=== PATIENT | female | born 1945 | race Caucasian/White ===

== ENCOUNTER → 2022-12-01 | Outpatient (CLI) | payer MEDICARE, SELFPAY ==
--- NOTE | 2022-12-01 09:00 | PET_ITS ---
EXAMINATION: FDG PET-CT INDICATIONS: A 77-year-old female with a history of pulmonary nodularity. COMPARISON EXAMINATION: None available. INDEX LESION SIZE SUV INTERPRETATION Left upper lung field, left upper lobe 1.0 max Quantitative criteria for viable neoplasm are not fulfilled, repeat FDG PET CT imaging recommended in 6-9 months. Bilateral thoracic perihilum 3.4 max Quantitative criteria for viable neoplasm are fulfilled. Left adrenal gland 2.2 Quantitative criteria for viable neoplasm are not fulfilled. TECHNIQUE: Following the intravenous administration of 13.53 mCi of F-18 deoxyglucose via the left antecubital fossa, multiplanar image acquisitions of the head, neck, chest, abdomen and pelvis to level of mid-thigh, lower extremities obtained at one hour post radiopharmaceutical administration contemporaneously interpreted with the current CT of the head, neck, chest, abdomen and pelvis to level of mid-thigh, lower extremities dated 12/01/22 via coregistration reveal: SERUM GLUCOSE LEVEL: 97 mg/dl. HEIGHT: 63 inches. WEIGHT: 136 lbs. FINDINGS: Head/Neck: There is no evidence of abnormal increased glucose metabolism in the pharyngeal mucosal space, parapharyngeal space, bilateral-lateral and anterior neck, hypopharynx and distribution of the laryngeal structures. The visualized portion of the cerebral cortical-subcortical structures demonstrate symmetric and preserved glucose metabolism. CHEST: Subtle increased radiopharmaceutical concentration defined in the left upper anterior lung field, left upper lobe. The calculated maximum standard uptake value is 1.0. Quantitative criteria for viable neoplasm are not fulfilled. Facilitated FDG concentration is noted in the bilateral thoracic perihilum. The calculated maximum standard uptake value is 3.4. Prominent radiopharmaceutical concentration is identified in the left ventricular myocardium commensurate with the [place]. Pertinent chest CT findings are as follows. There is atherosclerotic calcification defined in the thoracic aorta without evidence of dilatation-aneurysm formation. Coronary arterial calcification is observed. Apical lung field linear parenchymal densities demonstrate no evidence of quantitatively significant increased FDG uptake. Abdomen/Pelvis: Mild increased radiopharmaceutical concentration is identified in the left upper abdomen associated with the left adrenal gland. The calculated maximum standard uptake value is 2.2. Normal physiologic distribution of the radiopharmaceutical is apparent in the hepatic and splenic parenchyma, both renal units, bladder and visualized intestinal tract. Diffuse radiopharmaceutical concentration is noted in all four quadrants of the abdomen and pelvis. Abdomen and pelvis CT findings are as follows. Calcification is defined in the bilateral adnexal region without evidence of increased tracer uptake. Right and left inguinal soft tissue densities are ametabolic. The gallbladder is surgically absent. There is atherosclerotic calcification defined in the abdominal aorta without evidence of dilatation-aneurysm formation. Pelvic arterial calcification is observed. Calcified phlebolith formation is encountered in the right lower hemipelvis. Skeletal: Orthopedic hardware placement is noted in the mid-lower cervical spine commensurate with spinal fusion operative intervention. Degenerative changes are noted in the cervical, thoracic and lumbar spine. PET/PET/CT Tumor Base -Thigh Init IMPRESSION: 1. NEGATIVE EXAMINATION. There is no definitive quantitative scintigraphic evidence of viable neoplasm. 2. Enhanced tracer uptake barely perceptible in the left upper lung field, left upper lobe does not fulfill quantitative criteria for malignant transformation. (Mondragon et al, Annals of Internal Medicine, 138:724, 2003) 3. Metabolic and/or anatomic stability may be ensured in the left hemithorax pulmonary parenchymal abnormality with repeat FDG PET study and/or CT of the thorax in six-nine months if clinically indicated. (Xiu, Journal of Nuclear Medicine 45:88, P2004 Andrea, Seminars in Thoracic and Cardiovascular Surgery 14:292, 2002) 4. The increase in radiopharmaceutical concentration manifest in the bilateral thoracic perihilum does not fulfill quantitative criteria for malignant transformation. 5. The left adrenal gland subtle hypermetabolic focus does not fulfill quantitative criteria for malignant involvement. Electronic Signature Rodriguez Peters D.O. Accurate Quantification of SUVs for this report are calculated using the exclusive [employer], ([place] Patent No. [id number] [id number] [phone] [phone] [place] patent [id number] [phone] ). Standardization and correction of the FDG SUV metric exclusively available with [employer] intellectual property, allow for vendor non-specific objective quantitative sequential FDG PET-CT comparison and otherwise unobtainable optimization of the sensitivity and specificity of the examination. [email or web address] Electronically Signed: Rodriguez Peters DO at 7:57 EDT ,
== END | disposition home or self-care (01) ==
PROVIDERS: PCP Family Medicine; Referring Provider Internal Medicine Pulmonary Disease; Visit Provider Internal Medicine Pulmonary Disease
DX: R91.1 Solitary pulmonary nodule (principal)
CPT/HCPCS: 78815; A9552

== ENCOUNTER → 2023-05-13 | Outpatient (CLI) | payer MEDICARE, SELFPAY ==
--- NOTE | 2023-05-13 12:52 | CT_ITS ---
INDICATION: Known pulmonary nodules EXAMINATION: CT CHEST WITHOUT CONTRAST - CT Chest W/O Contrast Injection TECHNIQUE: Helically acquired images were obtained of the chest. A radiation dose optimization technique was used for this scan. IV Contrast dosage and agent: None. COMPARISON: Pet/CT from 12/02/2019 FINDINGS: LUNGS, PLEURA AND LARGE AIRWAYS: Lung windows show nonspecific pleural thickening in the apices with underlying emphysema and nonspecific pleural thickening in both hemithoraces as well. There is dependent atelectasis without an organized infiltrate, effusion, or suspicious noncalcified mass or nodule. THYROID: No thyroid lesions. HEART AND PERICARDIUM: Heart size is normal. No pericardial effusion. CORONARY ARTERIES: Coronary artery calcification is seen. VESSELS: Thoracic aorta is not dilated. MEDIASTINUM AND KRYSTEN: No suspicious enlarged axillary, mediastinal or hilar adenopathy. There is a small hiatal hernia with evidence of GE reflux. UPPER ABDOMEN: Limited cuts through the upper abdomen show previous cholecystectomy. BONES: No suspicious lytic or blastic abnormality. Degenerative changes noted CT/Chest without Contrast IMPRESSION: Underlying emphysema with nonspecific pleural thickening in both hemithoraces particularly the apices, no organized infiltrate, effusion, or suspicious noncalcified mass or nodule No suspicious adenopathy Degenerative bony changes Electronically Signed: Soren Hare MD at 13:07 EDT ,
--- OUTSIDE RECORDS SUMMARY | 2023-05-13 20:50 | XMS RPT_ITS | CCD ---
Author Name Unknown Address [address] [place] [address] Organization [facility] Care Team Providers Care Teaching Young Name Role Phone Jesus FRIEDMAN, Rodriguez Primary Care Provider Jesus FRIEDMAN, Rodriguez Primary Care Provider Moy De Dios MD Primary Care Provider MOY DE DIOS Attending Unavailable MOY DE DIOS Primary Care Unavailable MOY DE DIOS Attending Unavailable MOY DE DIOS Primary Care Unavailable BRYON VEE Attending Unavailable RODRIGUEZ FRANCO Primary Care Unavailable RODRIGUEZ FRANCO Primary Care Unavailable RODRIGUEZ FRANCO Primary Care Unavailable PHIL BURGESS Attending Unavailable Allergies Allergy Classification Reported Allergen(s) Allergy Type Date of Onset Reaction(s) Facility (4 sources) Lidocaine Drug Allergy 12-08-2022 [facility] Medications Current Medications Medication Drug Class(es) Dates Sig (Normalized) Sig (Original) 60 actuat fluticasone propionate 0.232 mg/actuat / salmeterol xinafoate 0.014 mg/actuat dry powder inhaler (1 source) Corticosteroid, beta2-Adrenergic Agonist Start: 12-22-2022 take 1 puff(s) by inhalation twice daily fluticasone-salme terol (AirDuo RespiClick) 232-14 MCG/ACT inhaler Inhale 1 puff 2 times daily. 0 12/22/2022 Active Meclizine (2 sources) Antiemetic MECLIZINE HCL PO Take by mouth. 0 Active Misc Natural Products (PUMPKIN SEED OIL PO) (2 sources) Misc Natural Products (PUMPKIN SEED OIL PO) Take by mouth. 0 Active Multiple Vitamin (MULTIVITAMIN ADULT PO) (2 sources) Multiple Vitamin (MULTIVITAMIN ADULT PO) Take by mouth. 0 Active Completed/Discontinued Medications Medication Drug Class(es) Dates Sig (Normalized) Sig (Original) cholecalciferol 0.125 mg oral capsule (2 sources) Vitamin D End: 01-05-2023 take 1 capsule by mouth once daily cholecalciferol (Vitamin D-3) 125 MCG (5000 UT) capsule Take 1 capsule by mouth daily. 0 01/05/2023 Discontinued (Therapy completed) Fluticasone-Umeclidin -Vilant (TRELEGY ELLIPTA IN) (2 sources) End: 01-05-2023 Fluticasone-Umeclidi n-Vilant (TRELEGY ELLIPTA IN) Inhale. 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 Cardiac dysrhythmias (5 sources) Palpitations; Translations: [Palpitations] Onset: 11-13-2022 11-20-2022 Episodic Conditions associated with dizziness or vertigo (7 sources) Dizziness; Translations: [Dizziness and giddiness] Onset: 12-09-2022 12-09-2022 Episodic Other circulatory disease (6 sources) Elevated blood-pressure reading without diagnosis of hypertension; Translations: [Elevated blood-pressure reading, without diagnosis of hypertension] Onset: 12-09-2022 12-09-2022 Episodic Other circulatory disease (2 sources) Elevated blood-pressure reading, without diagnosis of hypertension; Translations: [Elevated blood-pressure reading, without diagnosis of hypertension] Onset: 12-09-2022 Episodic Other lower respiratory disease (2 sources) Dyspnea; Translations: [Shortness of breath] 11-20-2022 Episodic Other lower respiratory disease (2 sources) Nodule of lung; Translations: [Solitary pulmonary nodule] 11-20-2022 Episodic Other lower respiratory disease (6 sources) Solitary nodule of lung; Translations: [Solitary pulmonary nodule] Onset: 12-01-2022 12-09-2022 Episodic Other lower respiratory disease (1 source) Solitary pulmonary nodule; Translations: [Solitary pulmonary nodule] Onset: 12-09-2022 Episodic Other lower respiratory disease (2 sources) Shortness of breath; Translations: [Shortness of breath] Onset: 11-20-2022 Episodic Other screening for suspected conditions (not mental disorders or infectious disease) (6 sources) Patient encounter status; Translations: [Encounter for screening for diabetes mellitus] Onset: 01-05-2023 01-05-2023 Episodic Viral infection (1 source) Disease caused by 2019-nCoV; Translations: [COVID-19] Episodic Results Test Name Value Interpretation Reference Range Facil ity Vital Signs Date Time Vital Sign Value Performing Clinician Merlyn lópez 01-05-2023 11:37-0500 Diastolic blood pressure 75 mm[Hg] Moy De Dios MD Work Phone: [facility] 01-05-2023 11:37-0500 Heart rate 75 /min Moy De Dios MD Work Phone: [facility] 01-05-2023 11:37-0500 Systolic blood pressure 137 mm[Hg] Moy Espinoza Work Phone: [facility] 01-05-2023 10:58-0500 Body height 160 cm Moy De Dios MD Work Phone: [facility] [employer] 01-05-2023 10:58-0500 Body mass index (BMI) [Ratio] 25.65 kg/m2 Moy De Dios MD Work Phone: [facility] 01-05-2023 10:58-0500 Body weight 65.68 kg Moy De Dios MD Work Phone: [facility] 01-05-2023 10:58-0500 SaO2% (BldA) [Mass fraction] 95 % Moy De Dios MD Work Phone: [facility] 12-09-2022 14:40-0400 Diastolic blood pressure 71 mm[Hg] Moy De Dios MD Work Phone: [facility] 12-09-2022 14:40-0400 Heart rate 82 /min Moy De Dios MD Work Phone: [facility] 12-09-2022 14:40-0400 Systolic blood pressure 126 mm[Hg] Moy Espinoza Work Phone: [facility] 12-09-2022 14:11-0400 Body height 160 cm Moy De Dios MD Work Phone: [facility] [employer] 12-09-2022 14:11-0400 Body mass index (BMI) [Ratio] 25.72 kg/m2 Moy De Dios MD Work Phone: [facility] [employer] 12-09-2022 14:11-0400 Body weight 65.86 kg Moy De Dios MD Work Phone: [facility] [employer] 12-09-2022 14:11-0400 SaO2% (BldA) [Mass fraction] 96 % Moy De Dios MD Work Phone: [facility] [employer] 11-20-2022 14:33-0400 Diastolic blood pressure 60 mm[Hg] Phil Burgess MD Work Phone: [facility] [employer] 11-20-2022 14:33-0400 Heart rate 60 /min Phil Burgess MD Work Phone: [facility] [employer] 11-20-2022 14:33-0400 Respiratory rate 18 /min Phil Burgess MD Work Phone: [facility] [employer] 11-20-2022 14:33-0400 SaO2% (BldA) [Mass fraction] 98 % Phil Burgess MD Work Phone: [facility] [employer] 11-20-2022 14:33-0400 Systolic blood pressure 143 mm[Hg] Phil macedo MD Work Phone: [facility] [employer] 11-20-2022 09:04-0400 Body temperature 97.9 [degF] Phil Burgess MD Work Phone: [facility] [employer] Encounters Encounter Date Encounter Type Care Provider Facility Start: 01-05-2023 End: 01-05-2023 ambulatory [facility] Start: 01-05-2023 End: 01-05-2023 Encounter for general adult medical examination without abnormal findings [facility] Start: 01-05-2023 End: 01-05-2023 Patient encounter procedure Moy De Dios MD Work Phone: [facility] Procedures Date Procedure Procedure Detail Performing Clinician Start: 01-05-2023 Adult depression scr eening assessment Moy De Dios MD Work Phone: Start: 11-20-2022 Ct angiography chest w/contrast/noncontrast Es Camejo PA-C Work Phone: Start: 11-20-2022 Radiologic exam ches t single view Es Camejo PA-C Work Phone: Start: 11-20-2022 Basic metabolic pane l calcium total Eslynne Camejo PA-C Work Phone: Start: 11-20-2022 Ecg routine ecg w/le ast 12 lds trcg only w/o i&r Phil Burgess MD Work Phone: Start: 03-19-2022 Comprehensive metabo lic panel Bryon Vee MD Work Phone: Start: 03-19-2022 Lipid panel Bryon tijerina MD Work Phone: Start: 11-25-2020 Radiologic exam ches t 2 views Rodriguez Franco MD Work Phone: Plan of Treatment Date Care Activity Detail Author Start: 02-05-2024 Medicare Annual Wellness (AWV) Medicare Annual Wellness (AWV) [facility] Start: 01-11-2024 End: 01-11-2024 Patient encounter procedure 01/11/2024 9:30 AM EST Office Visit [facility] [address] [place] [address] Moy De Dios MD [address] [facility] [address] [place], [place] [id number] [facility] Start: 01-06-2024 Depression Screening Depression Scre ening [facility] Start: 12-09-2023 COVID-19 Vaccine (#1) COVID-19 Vacci ne (#1) [facility] Payers Date Payer Category Payer Medicare [id number] 2011 Medicare MEDICARE MEDICAR E PART A AND B [id number] 2011-Present [address] [place] [address] Medicare [id number] Social History Date Type Detail Facility Tobacco smoking stat [facility] Unknown if ever smoked [facility] Work Phone: Start: 1945 Sex Assigned At Not on file [facility] Work Phone: Tobacco smoking stat [facility] Tobacco smoking consumption unknown [facility] Start: 03-09-2022 End: 11-20-2022 Exposure to SARS-CoV-2 (event) Not sure [facility] Start: 12-09-2022 End: 01-05-2023 Gender identity Not on file [facility] Start: 12-09-2022 End: 01-05-2023 History of Social function [facility] Start: 12-08-2022 Tobacco smoking stat [facility] Ex-smoker [facility] History of tobacco use Current smoker [facility] History of tobacco use Cigarette Smoker [facility] Start: 12-08-2022 Tobacco use and exposure Smoke less tobacco non-user [facility] Start: 12-09-2022 End: 01-05-2023 Alcohol intake Ex-drinker (finding) [facility] Frequency of Alcohol Consumption Not on file [facility] (I/We) worried whekrystian er (my/our) food would run out before (I/we) got money to buy more. Never true [facility] [employer] In the past 12 month s, was there a time when you were not able to pay the mortgage or rent on time? No [facility] Clinical Notes 11-20-2022 to 01-05-2023 Assessment & Plan Note - Moy De Dios MD - 01/05/2023 11:58 AM ESTAssessment & Plan Note - Moy De Dios MD - 01/05/2023 11:58 AM Shaan Stewart MA - 01/05/2023 11:00 AM EST Note Date & Type Note Facility 01-05-2023 Evaluation + Plan note Associated Problem(s): Elevated BP without diagnosis of hypertension Blood pressure was initially elevated, recheck was normal. [facility] 01-05-2023 Miscellaneous Notes Associated Problem(s): Elevated BP without diagnosis of hypertension Blood pressure was initially elevated, recheck was normal. documented in this encounter [facility] 01-05-2023 History of Presen t illness Narrative Patient verified by last name and date of . Images from the original note were not included. [email or web address] [address] [facility] [id number] Visit type: Established Patient Reason for Visit: Medicare Annual Wellness Visit Subsequent and Blood Work Assessment and Plan Problem List Items Addressed This Visit Circulatory Elevated BP without diagnosis of hypertension Blood pressure was initially elevated, recheck was normal. Other Visit Diagnoses Medicare annual wellness visit, initial - Primary Screening for diabetes mellitus Relevant Orders Comprehensive metabolic panel Screening for ischemic heart disease Relevant Orders Lipid panel Follow up in about 6 months (around 07/06/2023). Subjective HPI Danii comes in today for her initial annual Medicare well visit, she has no complaints she said her dizziness has significantly improved and currently she is using almost no meclizine. She said her daughter told her that her daughter and her granddaughter were having similar symptoms of shortness of breath and dizziness and her ferritin was low however reviewing Danii's chart she has had 2 CBCs that are perfectly normal no anemia which would be unusual if ferritin was low. Blood pressure is again elevated today we will recheck that prior to discharge. She has no other complaints, see ROS. I have reviewed and reconciled the medication list with the patient today. Current Outpatient Medications Medication Sig Dispense Refill fluticasone-salmeterol (AirDuo RespiClick) 232-14 MCG/ACT inhaler Inhale 1 puff 2 times daily. MECLIZINE HCL PO Take by mouth. Misc Natural Products (PUMPKIN SEED OIL PO) Take by mouth. Multiple Vitamin (MULTIVITAMIN ADULT PO) Take by mouth. No current facility-administered medications for this visit. Medications Discontinued During This Encounter Medication Reason cholecalciferol (Vitamin D-3) 125 MCG (5000 UT) capsule Therapy completed Ehdygjsujih-Qcxzutpin-Ltfuqu (TRELEGY ELLIPTA IN) Therapy completed List of current healthcare providers: Patient Care Team: Moy De Dios MD as PCP - General (Family Medicine) The following health maintenance schedule was reviewed with the patient and provided in printed form in the after visit summary: Health Maintenance Topic Date Due Medicare Annual Wellness (AWV) Never done Depression Screening Never done Influenza Vaccine (1) 08/29/2023 (Originally 10/30/2022) DTaP/Tdap/Td Vaccines (1 - Tdap) 12/09/2023 (Originally 1965) Pneumococcal Vaccine: 65+ Years (1 - PCV) 12/09/2023 (Originally 2011) Zoster Vaccines (1 of 2) 12/09/2023 (Originally 1996) Hepatitis C Screening 12/09/2023 (Originally 1964) Bone Density Scan 12/09/2023 (Originally 1945) COVID-19 Vaccine (1) 12/09/2023 (Originally 1945) HIB Vaccines Aged Out Hepatitis B Vaccines Aged Out IPV Vaccines Aged Out Hepatitis A Vaccines Aged Out Meningococcal Vaccine Aged Out Rotavirus Vaccines Aged Out HPV Vaccines Aged Out Orders Placed This Encounter Procedures Lipid panel Standing Status: Future Number of Occurrences: 1 Standing Expiration Date: 01/06/2024 Comprehensive metabolic panel Standing Status: Future Number of Occurrences: 1 Standing Expiration Date: 01/06/2024 Health Risk Assessment: General In general, how would you say your health is?: Very good In the past 7 days, have you experienced any of the following: New or Increased Pain, New or Increased Fatigue, Loneliness, Social Isolation, Stress or Anger?: No Do you get the social and emotional suppport you need?: Yes Interventions: Interventions: Hearing / Vision Do you or your family notice any trouble with your hearing that hasn't been managed with hearing aids?: No Do you have difficulty driving, watching TV, or doing any of your daily activities because of your eyesight?: No Have you had an eye exam within the past year?: Yes No results found. Interventions: Safety Do you have a working smoke detector?: Yes Do you have any tripping hazards - loose or unsecured carpets or rugs?: No Do you have any tripping hazards - clutter in doorways, halls, or stairs?: No Do you have either shower bars, grab bars, non-slip mats or non-slip surfaces in your shower or bathtub? : Yes Do all your stairways have a railing or banister? : Yes Do you fasten your seatbelt when you are in a car?: Yes Interventions: ADL In the past 7 days, did you need help from others to perform any of the following everyday activities: Eating, dressing, grooming,bathing, toileting, or walking / balance? : No In the past 7 days, did you need help from others to take care of any of the following: laundry, housekeeping, banking / finances,shopping, telephone use, food preparation, transportation, or taking medications? : No Interventions: Living Will Do you have a living will?: Yes Interventions: Cognitive: Cognitive Screening: Mini-Cog Clock Drawing Test (CDT): 2 Words Recalled: 3 Total Score: 5 Total Score Interpretation: Normal Mini-Cog Interventions: Fall Risk: Interventions: No falls Depression Screening: Over the past 2 weeks, how often have you been bothered by any of the following problems? Little interest or pleasure in doing things: Several days Feeling down, depressed, or hopeless: Not at all Patient Health Questionnaire-2 Score: 1 If you checked off any problems on this questionnaire so far, How difficult have these problems made it for you to do your work, take care of things at home, or get along with other people?: Not difficult at all Interventions: Tobacco Use: Social History Tobacco Use Smoking Status Former Packs/day: 2.00 Years: 14.00 Additional pack years: 0.00 Total pack years: 28.00 Types: Cigarettes Smokeless Tobacco Never Interventions: Alcohol Use: Audit Alcohol Screening Q2: How many drinks containing alcohol do you have on a typical day when you are drinking?: Patient does not drink Interventions: Drug Use: Drug Abuse Screening Test (DAST-10) Have you used drugs other than those required for medical reasons?: No Interventions: Review of Systems Constitutional: Negative for chills and fever. Respiratory: Negative for shortness of breath. Cardiovascular: Negative for chest pain and palpitations. Gastrointestinal: Negative for abdominal pain, blood in stool, constipation and diarrhea. Genitourinary: Negative for dyspareunia, dysuria, frequency, hematuria and urgency. Neurological: Negative for weakness and numbness. Psychiatric/Behavioral: Negative for dysphoric mood. The patient is not nervous/anxious. There is no immunization history on file for this patient. Allergies Allergen Reactions Lidocaine Other reaction(s): Unknown Outpatient Medications Prior to Visit Medication Sig Dispense Refill fluticasone-salmeterol (AirDuo RespiClick) 232-14 MCG/ACT inhaler Inhale 1 puff 2 times daily. MECLIZINE HCL PO Take by mouth. Misc Natural Products (PUMPKIN SEED OIL PO) Take by mouth. Multiple Vitamin (MULTIVITAMIN ADULT PO) Take by mouth. cholecalciferol (Vitamin D-3) 125 MCG (5000 UT) capsule Take 1 capsule by mouth daily. Wtldqjrlimt-Pbrkyawcj-Fkamrv (TRELEGY ELLIPTA IN) Inhale. No facility-administered medications prior to visit. History reviewed. No pertinent past medical history. Social History Socioeconomic History Marital status: Tobacco Use Smoking status: Former Packs/day: 2.00 Years: 14.00 Additional pack years: 0.00 Total pack years: 28.00 Types: Cigarettes Smokeless tobacco: Never Vaping Use Vaping Use: Never used Substance and Sexual Activity Alcohol use: Not Currently Drug use: Never Sexual activity: Not Currently Social Determinants of Health Financial Resource Strain: Low Risk (01/05/2023) Overall Financial Resource Strain (CARDIA) Difficulty of Paying Living Expenses: Not hard at all Food Insecurity: No Food Insecurity (01/05/2023) Hunger Vital Sign Worried About Running Out of Food in the Last Year: Never true Ran Out of Food in the Last Year: Never true Transportation Needs: No Transportation Needs (01/05/2023) PRAPARE - Transportation Lack of Transportation (Medical): No Lack of Transportation (Non-Medical): No Physical Activity: Sufficiently Active (01/05/2023) Exercise Vital Sign Days of Exercise per Week: 5 days Minutes of Exercise per Session: 40 min Housing Stability: Low Risk (01/05/2023) Housing Stability Vital Sign Unable to Pay for Housing in the Last Year: No Number of Places Lived in the Last Year: 1 Unstable Housing in the Last Year: No Past Surgical History: Procedure Laterality Date CERVICAL FUSION 2002 CHOLECYSTECTOMY 1979 Past Surgical History: Procedure Laterality Date CERVICAL FUSION 2002 CHOLECYSTECTOMY 1979 Family History Problem Relation Name Age of Onset Emphysema Mother Objective BP 137/75 Pulse 75 Ht 5' 3 (1.6 m) Wt 144 lb 12.8 oz (65.7 kg) SpO2 95% BMI 25.65 kg/m Physical Exam Vitals and nursing note reviewed. Constitutional: General: She is not in acute distress. Appearance: Normal appearance. HENT: Head: Normocephalic. Right Ear: Tympanic membrane, ear canal and external ear normal. Left Ear: Tympanic membrane, ear canal and external ear normal. Mouth/Throat: Mouth: Mucous membranes are moist. Pharynx: Oropharynx is clear. Eyes: Extraocular Movements: Extraocular movements intact. Pupils: Pupils are equal, round, and reactive to light. Neck: Thyroid: No thyromegaly. Vascular: No carotid bruit. Cardiovascular: Rate and Rhythm: Normal rate and regular rhythm. Heart sounds: Normal heart sounds. No murmur heard. Pulmonary: Effort: Pulmonary effort is normal. Breath sounds: Normal breath sounds. Abdominal: General: Bowel sounds are normal. Palpations: Abdomen is soft. Musculoskeletal: General: Normal range of motion. Cervical back: Normal range of motion. Lymphadenopathy: Cervical: No cervical adenopathy. Skin: General: Skin is warm and dry. Neurological: General: No focal deficit present. Mental Status: She is alert and oriented to person, place, and time. Psychiatric: Mood and Affect: Mood normal. Data Reviewed Labs: Imaging/Testing: Moy De Dios MD 01/05/2023 11:58 AM documented in this encounter [facility] 12-10-2022 Telephone encounter Note Pt had PET scan ordered by Dr. Yoon completed in [place] on 12/01/22 showing low suspicion for malignancy with recommendation per radiology report to complete fu imaging in 6-9 months time. Navigator will plan to follow and look for additional imaging in May 2023. [facility] 12-10-2022 Miscellaneous Notes Pt had PET scan ordered by Dr. Yoon completed in [place] on 12/01/22 showing low suspicion for malignancy with recommendation per radiology report to complete fu imaging in 6-9 months time. Navigator will plan to follow and look for additional imaging in May 2023. Pt appeared on ED Nuance search for lung nodules after CTA chest 11/20/22 revealed mult pulmonary nodules up to 10 x 7 mm. Pt was referred to [facility] but deferred as she is established in [place]. Navigator contacted patient by phone to determine provider, she sees Dr. Justino Honeycutt, contacted their office and spoke with Erica, she confirms patient has appt 11/26/22. Will fax imaging reports/ED notes to [phone]. No further questions at this time. documented in this encounter [facility] 12-09-2022 Note Addended by: MOY DE DIOS on: 12/10/2022 04:07 PM Modules accepted: Level of Service [facility] 12-09-2022 Evaluation + Plan note Associated Problem(s): Dizziness Etiology is unknown, she is seeing cardiology who has her scheduled for a monitor and storage bin tender, she also has had a stress test and echocardiogram. [facility] 12-09-2022 Miscellaneous Notes Associated Problem(s): Dizziness Etiology is unknown, she is seeing cardiology who has her scheduled for a monitor and storage bin tender, she also has had a stress test and echocardiogram. Associated Problem(s): Elevated BP without diagnosis of hypertension Blood pressure was initially elevated, recheck was normal. Associated Problem(s): Solitary pulmonary nodule Stable, follow-up with pulmonology as scheduled Addended by: MOY DE DIOS on: 12/10/2022 04:07 PM Modules accepted: Level of Service documented in this encounter [facility] 12-09-2022 Evaluation + Plan note Associated Problem(s): Elevated BP without diagnosis of hypertension Blood pressure was initially elevated, recheck was normal. [facility] 12-09-2022 Evaluation + Plan note Associated Problem(s): Solitary pulmonary nodule Stable, follow-up with pulmonology as scheduled [facility] 12-09-2022 History of Presen t illness Narrative Patient verified by last name and date of . Images from the original note were not included. 12/09/2022 Danii Stokes (: 1945) is a 77 y.o. female , Established patient, here for evaluation of the following chief complaint(s): New Patient, Lung Nodule (Multiple nodules showed on chest ct), and Health Maintenance (Pt refused all vaccines, dexa scan, screening hep c ) ASSESSMENT/PLAN: 1. Solitary pulmonary nodule Assessment & Plan: Stable, follow-up with pulmonology as scheduled 2. Dizziness Assessment & Plan: Etiology is unknown, she is seeing cardiology who has her scheduled for a monitor and storage bin tender, she also has had a stress test and echocardiogram. 3. Elevated BP without diagnosis of hypertension Assessment & Plan: Blood pressure was initially elevated, recheck was normal. Follow up AWV. SUBJECTIVE/OBJECTIVE: ANTONINA Belcher comes in today to establish as a new patient, she said her previous doctor left town. She does see cardiology and pulmonology were both working her up for dizziness a pulmonary nodule and COPD. She has no other complaints at this time, she has not had lab work for a while so we will get her scheduled to come in for an annual Medicare well visit and do fasting lab work at that time. Blood pressure is initially elevated, we will recheck that prior to discharge. Review of Systems Constitutional: Negative for chills and fever. Respiratory: Positive for shortness of breath. Cardiovascular: Negative for chest pain and palpitations. Gastrointestinal: Negative for abdominal pain, blood in stool, constipation and diarrhea. Genitourinary: Negative for dyspareunia, dysuria, frequency, hematuria and urgency. Neurological: Negative for weakness and numbness. Psychiatric/Behavioral: Negative for dysphoric mood. The patient is not nervous/anxious. Vitals: 12/09/22 1411 12/09/22 1440 BP: (!) 164/79 126/71 Pulse: 80 82 SpO2: 96% Weight: 145 lb 3.2 oz (65.9 kg) Height: 5' 3 (1.6 m) Physical Exam Vitals and nursing note reviewed. Constitutional: General: She is not in acute distress. Appearance: Normal appearance. HENT: Head: Normocephalic. Right Ear: Tympanic membrane, ear canal and external ear normal. Left Ear: Tympanic membrane, ear canal and external ear normal. Mouth/Throat: Mouth: Mucous membranes are moist. Pharynx: Oropharynx is clear. Eyes: Extraocular Movements: Extraocular movements intact. Pupils: Pupils are equal, round, and reactive to light. Neck: Vascular: No carotid bruit. Cardiovascular: Rate and Rhythm: Normal rate and regular rhythm. Heart sounds: Normal heart sounds. No murmur heard. Pulmonary: Effort: Pulmonary effort is normal. Breath sounds: Normal breath sounds. Abdominal: General: Bowel sounds are normal. Palpations: Abdomen is soft. Musculoskeletal: General: Normal range of motion. Cervical back: Normal range of motion. Lymphadenopathy: Cervical: No cervical adenopathy. Skin: General: Skin is warm and dry. Neurological: General: No focal deficit present. Mental Status: She is alert and oriented to person, place, and time. Psychiatric: Mood and Affect: Mood normal. An electronic signature was used to authenticate this note. Moy De Dios MD 12/09/2022 4:26 PM documented in this encounter [facility] 12-09-2022 Note Addended by: MOY DE DIOS on: 12/10/2022 04:07 PM Modules accepted: Level of Service [facility] 11-25-2022 Telephone encounter Note Pt appeared on ED Nuance search for lung nodules after CTA chest 11/20/22 revealed mult pulmonary nodules up to 10 x 7 mm. Pt was referred to [facility] but deferred as she is established in [place]. Navigator contacted patient by phone to determine provider, she sees Dr. Justino Honeycutt, contacted their office and spoke with Erica, she confirms patient has appt 11/26/22. Will fax imaging reports/ED notes to [phone]. No further questions at this time. [facility] 11-20-2022 Hospital Dischajit Camejo PA-C - 11/20/2022 3:25 PM EDT Please follow-up with your machine spreader in regards to your palpitations, and shortness of breath. Please keep the scheduled ECHO on December 01, unless otherwise directed by your machine spreader. You have also been provided with a referral to pulmonology to follow-up on your pulmonary nodule and scarring which were incidentally found on imaging today. Please return to the ED if you have any new or worsening symptoms to include worsening dizziness, lightheadedness, shortness of breath, chest pain, palpitations, cough, hemoptysis, leg swelling, weakness, numbness, tingling, presyncope, syncope, fevers, chills or if you have any new symptoms or concerns. The following attachments cannot be sent through Care Everywhere.Palpitations Discharge Instructions (Macedonian)Shortness of Breath (Dyspnea) Discharge Instructions (Macedonian)documented in this encounter [facility] 11-20-2022 Emergency department Note Ortho BP's: Layin/71 (99) HR: 88 Sittin/64 (96) HR: 70 Standin/82 (110) HR: 88 Mally Kennedy RN 11/20/22 1035 [facility] 11-20-2022 Emergency department Note Ortho BP's: Layin/71 (99) HR: 88 Sittin/64 (96) HR: 70 Standin/82 (110) HR: 88 Mally Kennedy RN 11/20/22 1035 EMERGENCY DEPARTMENT ENCOUNTER Pt Name: Danii Stokes Birthdate 1945 Date of evaluation: 11/20/2022 ED Provider: Es Camejo PA-C EDcare was supervised by Dr. Burgess who independently examined and evaluated the patient. Please see their attestation note for further details. CHIEF COMPLAINT Chief Complaint Patient presents with Dizziness HISTORY OF PRESENT ILLNESS (Location/Symptom, Timing/Onset, Context/Setting, Quality, Duration, Modifying Factors, Severity) Note limiting factors. I wore appropriate PPE for the entirety of this encounter. HPI Danii Stokes is a 77 y.o. female who presents to the emergency department with chief complaint of dizziness, shortness of breath, palpitations which occurs with activity, and at random times throughout the day for the past 2 to 3 weeks. Patient reports that she has been very healthy, and has no chronic medical conditions, takes no medications on a daily basis but about 3 weeks ago she began to have intermittent dizziness, palpitations and shortness of breath that seem to be random. On further questioning patient does report that it is exacerbated by activity such as walking up the stairs, exercise, activity. She denies any exacerbation of her symptoms with movements from sitting to standing, or laying to standing but states that it is significantly worse with walking up the stairs. She quantifies her dizziness as a feeling of presyncope, and denies a room spinning sensation. She has not had any nausea, vomiting, ringing in the ears. She reports that she was evaluated by her machine spreader a couple of days ago, and he performed an EKG which was normal and she is scheduled for an ECHO on December 01. She reports that the symptoms happen approximately 3-4 times a day and she came in today because she was concerned as they have not been resolving. She denies any fevers, chills, nausea, vomiting, abdominal pain, diarrhea, constipation, dysuria, pyuria, flank pain. She endorses a single episode of leg swelling which lasted for 30 minutes several days ago and resolved without further intervention, and denies any additional leg swelling, leg pain and she has no additional symptoms or complaints at this time. Nursing Notes were reviewed. Limitations to history: None Outside historians: None REVIEW OF SYSTEMS Review of Systems 9 systems reviewed, pertinent positives and negatives as in HPI PAST MEDICAL HISTORY No past medical history on file. SURGICAL HISTORY No past surgical history on file. CURRENT MEDICATIONS Previous Medications No medications on file ALLERGIES Patient has no known allergies. FAMILY HISTORY No family history on file. SOCIAL HISTORY Social History Socioeconomic History Marital status: SCREENINGS HEART Score History: Moderately suspicious ECG: Normal Age: 65+ Risk Factors: No known risk factors Troponin: Less than or equal to normal limit HEART Score: 3 NIH Stroke Scale 1A. Level of Consciousness: Alert, Keenly Responsive 1B. Ask Month and Age: Both Questions Right 1C. Blink Eyes & Squeeze Hands: Performs Both Tasks 2. Best Gaze: Normal 3. Visual: No Visual Loss 4. Facial Palsy: Normal Symmetrical Movements 5A. Motor - Left Arm: No Drift 5B. Motor - Right Arm: No Drift 6A. Motor - Left Leg: No Drift 6B. Motor - Right Leg: No Drift 7. Limb Ataxia: Absent 8. Sensory Loss: Normal 9. Best Language: No Aphasia 10. Dysarthria: Normal 11. Extinction and Inattention: No Abnormality NIH Stroke Scale: 0 PHYSICAL EXAM ED Triage Vitals Temp Heart Rate Resp BP 11/20/22 0904 11/20/22 0904 11/20/22 0904 11/20/22 0904 36.6 C (97.9 F) 78 16 116/87 SpO2 Temp Source Heart Rate Source Patient Position 11/20/22 0904 11/20/22 0904 11/20/22 0904 11/20/22 1144 98 % Temporal Monitor Lying BP Location FiO2 (%) 11/20/22 1144 -- Left arm Physical Exam Vitals and nursing note reviewed. Constitutional: General: She is not in acute distress. Appearance: She is well-developed. She is not ill-appearing, toxic-appearing or diaphoretic. HENT: Head: Normocephalic and atraumatic. Mouth/Throat: Mouth: Mucous membranes are moist. Pharynx: Oropharynx is clear. Eyes: General: No scleral icterus. Extraocular Movements: Extraocular movements intact. Conjunctiva/sclera: Conjunctivae normal. Pupils: Pupils are equal, round, and reactive to light. Comments: Test of skew negative Cardiovascular: Rate and Rhythm: Normal rate and regular rhythm. Pulses: Radial pulses are 2+ on the right side and 2+ on the left side. Dorsalis pedis pulses are 2+ on the right side and 2+ on the left side. Heart sounds: No murmur heard. No friction rub. No gallop. Pulmonary: Effort: Pulmonary effort is normal. No tachypnea, accessory muscle usage or respiratory distress. Breath sounds: Normal breath sounds. No stridor. No wheezing, rhonchi or rales. Abdominal: Palpations: Abdomen is soft. Tenderness: There is no abdominal tenderness. There is no guarding or rebound. Musculoskeletal: General: No swelling or tenderness. Cervical back: Normal range of motion and neck supple. No rigidity or tenderness. Right lower leg: No edema. Left lower leg: No edema. Skin: General: Skin is warm and dry. Capillary Refill: Capillary refill takes less than 2 seconds. Coloration: Skin is not jaundiced or pale. Neurological: General: No focal deficit present. Mental Status: She is alert and oriented to person, place, and time. Psychiatric: Mood and Affect: Mood normal. Behavior: Behavior normal. Thought Content: Thought content normal. Judgment: Judgment normal. DIAGNOSTIC RESULTS RADIOLOGY (Per Emergency Physician): Interpretation per the Radiologist below, if available at the time of this note: CT chest angiogram w and/or wo IV contrast Final Result 1. No CTA evidence of acute pulmonary embolism. 2. Biapical pleural-parenchymal scarring with scattered areas of mosaic attenuation and interlobular septal thickening. While nonspecific findings could reflect small airways disease/infection. Interstitial edema could have a similar appearance. No significant pleural effusions. 3. 10 x 7 mm subpleural nodule anterior left upper lobe. While this may reflect component of left apical pleural-parenchymal scarring, please see Fleischner society guidelines below. Additional 5 mm pulmonary nodule right lung apex. 4. Atherosclerosis. 2017 - UPDATED F[employer]CH[employer] SOCIETY GUIDELINES FOR MANAGEMENT OF SMALL PULMONARY NODULES DETECTED ON CT Note: Recommendations do not apply for lung cancer screening, patients with immunosuppression or with known cancer. Dimensions are average of long and short axis rounded to the millimeter MULTIPLE NODULES: LOW RISK PATIENT (Use most suspicious nodule to manage guidelines) All <6mm - No follow up Any >6mm - 3-6 months, then consider 18-24 months MULTIPLE NODULES: HIGH RISK PATIENT (Use most suspicious nodule to manage guidelines) All <6mm - No follow up Any >6mm - 3-6 months, then 18-24 months SUBSOLID NODULE: SINGLE GROUND GLASS OPACITY <6mm - No follow up 6mm or greater - 6-12 months, then every 2 years until 5 years SUBSOLID NODULE: PART SOLID <6mm - No follow up 6mm or greater - 3-6 months, then if solid component <6mm and unchanged every year until 5 years MULTIPLE SUBSOLID NODULES: All <6mm - 3-6 months, then if stable 24 and 48 months 6mm or greater - 3-6 months, subsequent management based upon most suspicious nodule Report Dictated on Electronically Signed By: Jesus Marcano MD Electronically Signed Date/Time: 11/20/2022 2:27 PM EDT XR chest 1 view Final Result FINDINGS/IMPRESSION: Limitations: No significant limitations. Lines, tubes, and devices: None Cardiomediastinal silhouette: Heart size is within normal limits. Lungs/Pleura: Background of chronic lung changes including biapical pleural-parenchymal scarring. Mild bibasilar atelectasis. No sizable pleural effusions. No pneumothorax. Osseous structures: Degenerative spondylosis in the visualized spine. Soft tissues: No soft tissue abnormality is detected. Report Dictated on Electronically Signed By: Jesus Marcano MD Electronically Signed Date/Time: 11/20/2022 10:48 AM EDT LABS: Labs Reviewed BASIC METABOLIC PANEL - Abnormal Result Value SODIUM 139 POTASSIUM 4.1 CHLORIDE 107 CARBON DIOXIDE 25 UREA NITROGEN 15 CREATININE 0.60 GLUCOSE 102 (*) CALCIUM 8.6 ANION GAP 8 eGFR >90.0 CBC WITH AUTO DIFFERENTIAL - Abnormal Auto WBC 6.7 RBC 4.56 Hemoglobin 14.6 Hematocrit 43.4 MCV 95.3 MCH 32.0 MCHC 33.5 RDW 12.9 Platelets 223 MPV 9.1 nRBC 0.0 Neutrophils Relative 69.3 Lymphocytes Relative 19.3 (*) Monocytes Relative 9.1 Eosinophils Relative 1.7 Basophils Relative 0.6 Neutrophils Absolute 4.7 Lymphocytes Absolute 1.3 Monocytes Absolute 0.6 Eosinophils Absolute 0.1 Basophils Absolute 0.0 D-DIMER,QUANTITATIVE - Abnormal D-DIMER, INNOVANCE 0.79 (*) Narrative: Innovance D-Dimer values of <0.50 mg/L FEU can be used in combination with a pre-test probability model (e.g. Well's) to exclude pulmonary embolism (PE) disease, as well as an aid in the diagnosis of deep vein thrombosis (DVT). TROPONIN I - Normal TROPONIN I <0.012 Narrative: Patients with high levels of Biotin oral intake (ie >5 mg/day) may have falsely decreased Troponin levels. NT PRO BNP - Normal NT PRO BNP 84 All other labs were within normal range or not returned as of this dictation. EMERGENCY DEPARTMENT COURSE and DIFFERENTIAL DIAGNOSIS/MDM: Vitals: Vitals: 11/20/22 0904 11/20/22 1144 11/20/22 1433 BP: 116/87 (!) 163/64 (!) 143/60 BP Location: Left arm Left arm Patient Position: Lying Sitting Pulse: 78 67 60 Resp: 16 18 Temp: 36.6 C (97.9 F) TempSrc: Temporal SpO2: 98% 98% 98% The patient presented with a chief complaint of intermittent chest pain, shortness of breath, palpitations and dizziness with activity. The differential diagnosis associated with this patient's presentation includes ACS, DC, new onset heart failure, pulmonary embolism, orthostatic hypotension, pneumonia, pneumothorax. Patient is alert, oriented, pleasant and interactive, in no apparent distress. Answers all questions appropriately. Vital signs are stable. Our workup consisted of ordering/reviewing CBC, BMP, BNP, troponin, D-dimer, chest x-ray, EKG. EKG shows sinus rhythm with an incomplete left bundle branch block, there is no previous EKG for comparison. Troponin is within defined limits. BNP is normal. CBC and BMP are within defined limits. D-dimer is elevated at 0.79. Patient's age-adjusted D-dimer is 0.76, so a CTA of the chest is added on for further evaluation of possible pulmonary embolism as a source for her symptoms. Chest x-ray Radiology interpretation shows chronic lung changes including biapical pleural-parenchymal scarring, and mild bibasilar atelectasis without sizable pleural effusion or pneumothorax. CTA of the chest shows no evidence of pulmonary embolism, but does show biapical pleural-parenchymal scarring with scattered areas of mosaic attenuation and interlobular septal thickening. There is also a 10 x 7 mm subpleural nodule anterior left upper lobe and an additional 5 mm pulmonary nodule in the right lung apex. I discussed these findings with the patient and her at the bedside, and recommended outpatient pulmonology follow-up in regards to her nodules and lung scarring. I do not believe that these findings are the cause of her palpitations, shortness of breath, dizziness but they should be followed up on. Vital signs have remained stable, CBC and BMP are within defined limits, BNP is normal, troponin is normal. Heart score is a 3 and patient is denying any chest pain. I entered into shared decision-making conversation with the patient during which I offered admission to observation for Cardiologic consultation, and continued evaluation, but patient elects to go home and follow-up with her machine spreader on an outpatient basis. She is scheduled for an ECHO on December 01 and is advised to make an appointment with her machine spreader for soon as possible. Advised the patient to follow-up with her PCP, with her machine spreader and with pulmonology for continued evaluation and management of her symptoms and her incidental findings. Advised patient to return to the ED immediately if she has any new or worsening symptoms to include worsening shortness of breath, palpitations, chest pain, dizziness, lightheadedness, syncope, presyncope, fevers, chills, nausea, vomiting, abdominal pain, weakness, numbness, tingling or if she has any new symptoms or concerns. Discussed signs/symptoms most concerning that necessitate immediate return. Patient verbalizes understanding of these return precautions, and is given opportunity ask any questions they may have. Patient denies further questions/comments/concerns, is understanding and agreeable to stated plan, and is discharged home in stable condition. ED Course as of 11/20/22 1539 WedNov 20, 2022 1017 ECG 12 lead Sinus rhythm Incomplete left bundle branch block Minimal ST elevation, anterior leads No previous ECG available for comparison [KEYA] ED Course User Index [KEYA] Phil Burgess MD Diagnoses as of 11/20/22 1539 SOB (shortness of breath) Palpitations Lung nodule seen on imaging study ED Medications managed: Medications iopamidol (Isovue-370) 76 % injection 75 mL (75 mL IntraVENous Given 11/20/22 1401) PROCEDURES: Unless otherwise noted below, none Procedures FINAL IMPRESSION 1. SOB (shortness of breath) 2. Palpitations 3. Lung nodule seen on imaging study DISPOSITION Discharge 11/20/2022 03:24:55 PM PATIENT REFERRED TO: [facility] [address] [place] [id number] Schedule an appointment as soon as possible for a visit in 1 week Rodriguez Franco MD [address] [facility] [id number] Schedule an appointment as soon as possible for a visit in 2 days [facility] ED [address] [facility] [address] [facility] ED [address] [facility] [address] Go to If symptoms worsen Bryon Vee MD [address], [place], [address] [facility] [phone] Schedule an appointment as soon as possible for a visit in 2 days DISCHARGE MEDICATIONS: New Prescriptions No medications on file (Comment: Please note this report has been produced using speech recognition software and may contain errors related to that system including errors in grammar, punctuation, and spelling, as well as words and phrases that may be inappropriate. If there are any questions or concerns please feel free to contact the dictating provider for clarification.) Es Camejo PA-C (electronically signed) Emergency Medicine Provider Es Camejo PA-C 11/20/22 1539 Pt c/o dizziness for the past three weeks. Pt states she was seen by her heart doctor on Wednesday and was sent home. Pt states nothing triggers the dizziness it just happens at random times. Reports palpitations documented in this encounter [facility] 11-20-2022 Emergency department Triage note Pt c/o dizziness for the past three weeks. Pt states she was seen by her heart doctor on Wednesday and was sent home. Pt states nothing triggers the dizziness it just happens at random times. Reports palpitations [facility] 11-20-2022 Physician Emergency department Note EMERGENCY DEPARTMENT ENCOUNTER Pt Name: Danii Stokes Birthdate 1945 Date of evaluation: 11/20/2022 ED Provider: Es Camejo PA-C EDcare was supervised by Dr. Burgess who independently examined and evaluated the patient. Please see their attestation note for further details. CHIEF COMPLAINT Chief Complaint Patient presents with Dizziness HISTORY OF PRESENT ILLNESS (Location/Symptom, Timing/Onset, Context/Setting, Quality, Duration, Modifying Factors, Severity) Note limiting factors. I wore appropriate PPE for the entirety of this encounter. HPI Danii Stokes is a 77 y.o. female who presents to the emergency department with chief complaint of dizziness, shortness of breath, palpitations which occurs with activity, and at random times throughout the day for the past 2 to 3 weeks. Patient reports that she has been very healthy, and has no chronic medical conditions, takes no medications on a daily basis but about 3 weeks ago she began to have intermittent dizziness, palpitations and shortness of breath that seem to be random. On further questioning patient does report that it is exacerbated by activity such as walking up the stairs, exercise, activity. She denies any exacerbation of her symptoms with movements from sitting to standing, or laying to standing but states that it is significantly worse with walking up the stairs. She quantifies her dizziness as a feeling of presyncope, and denies a room spinning sensation. She has not had any nausea, vomiting, ringing in the ears. She reports that she was evaluated by her machine spreader a couple of days ago, and he performed an EKG which was normal and she is scheduled for an ECHO on December 01. She reports that the symptoms happen approximately 3-4 times a day and she came in today because she was concerned as they have not been resolving. She denies any fevers, chills, nausea, vomiting, abdominal pain, diarrhea, constipation, dysuria, pyuria, flank pain. She endorses a single episode of leg swelling which lasted for 30 minutes several days ago and resolved without further intervention, and denies any additional leg swelling, leg pain and she has no additional symptoms or complaints at this time. Nursing Notes were reviewed. Limitations to history: None Outside historians: None REVIEW OF SYSTEMS Review of Systems 9 systems reviewed, pertinent positives and negatives as in HPI PAST MEDICAL HISTORY No past medical history on file. SURGICAL HISTORY No past surgical history on file. CURRENT MEDICATIONS Previous Medications No medications on file ALLERGIES Patient has no known allergies. FAMILY HISTORY No family history on file. SOCIAL HISTORY Social History Socioeconomic History Marital status: SCREENINGS HEART Score History: Moderately suspicious ECG: Normal Age: 65+ Risk Factors: No known risk factors Troponin: Less than or equal to normal limit HEART Score: 3 NIH Stroke Scale 1A. Level of Consciousness: Alert, Keenly Responsive 1B. Ask Month and Age: Both Questions Right 1C. Blink Eyes & Squeeze Hands: Performs Both Tasks 2. Best Gaze: Normal 3. Visual: No Visual Loss 4. Facial Palsy: Normal Symmetrical Movements 5A. Motor - Left Arm: No Drift 5B. Motor - Right Arm: No Drift 6A. Motor - Left Leg: No Drift 6B. Motor - Right Leg: No Drift 7. Limb Ataxia: Absent 8. Sensory Loss: Normal 9. Best Language: No Aphasia 10. Dysarthria: Normal 11. Extinction and Inattention: No Abnormality NIH Stroke Scale: 0 PHYSICAL EXAM ED Triage Vitals Temp Heart Rate Resp BP 11/20/22 0904 11/20/22 0904 11/20/22 0904 11/20/22 0904 36.6 C (97.9 F) 78 16 116/87 SpO2 Temp Source Heart Rate Source Patient Position 11/20/22 0904 11/20/22 0904 11/20/22 0904 11/20/22 1144 98 % Temporal Monitor Lying BP Location FiO2 (%) 11/20/22 1144 -- Left arm Physical Exam Vitals and nursing note reviewed. Constitutional: General: She is not in acute distress. Appearance: She is well-developed. She is not ill-appearing, toxic-appearing or diaphoretic. HENT: Head: Normocephalic and atraumatic. Mouth/Throat: Mouth: Mucous membranes are moist. Pharynx: Oropharynx is clear. Eyes: General: No scleral icterus. Extraocular Movements: Extraocular movements intact. Conjunctiva/sclera: Conjunctivae normal. Pupils: Pupils are equal, round, and reactive to light. Comments: Test of skew negative Cardiovascular: Rate and Rhythm: Normal rate and regular rhythm. Pulses: Radial pulses are 2+ on the right side and 2+ on the left side. Dorsalis pedis pulses are 2+ on the right side and 2+ on the left side. Heart sounds: No murmur heard. No friction rub. No gallop. Pulmonary: Effort: Pulmonary effort is normal. No tachypnea, accessory muscle usage or respiratory distress. Breath sounds: Normal breath sounds. No stridor. No wheezing, rhonchi or rales. Abdominal: Palpations: Abdomen is soft. Tenderness: There is no abdominal tenderness. There is no guarding or rebound. Musculoskeletal: General: No swelling or tenderness. Cervical back: Normal range of motion and neck supple. No rigidity or tenderness. Right lower leg: No edema. Left lower leg: No edema. Skin: General: Skin is warm and dry. Capillary Refill: Capillary refill takes less than 2 seconds. Coloration: Skin is not jaundiced or pale. Neurological: General: No focal deficit present. Mental Status: She is alert and oriented to person, place, and time. Psychiatric: Mood and Affect: Mood normal. Behavior: Behavior normal. Thought Content: Thought content normal. Judgment: Judgment normal. DIAGNOSTIC RESULTS RADIOLOGY (Per Emergency Physician): Interpretation per the Radiologist below, if available at the time of this note: CT chest angiogram w and/or wo IV contrast Final Result 1. No CTA evidence of acute pulmonary embolism. 2. Biapical pleural-parenchymal scarring with scattered areas of mosaic attenuation and interlobular septal thickening. While nonspecific findings could reflect small airways disease/infection. Interstitial edema could have a similar appearance. No significant pleural effusions. 3. 10 x 7 mm subpleural nodule anterior left upper lobe. While this may reflect component of left apical pleural-parenchymal scarring, please see Fleischner society guidelines below. Additional 5 mm pulmonary nodule right lung apex. 4. Atherosclerosis. 2017 - UPDATED [employer] SOCIETY GUIDELINES FOR MANAGEMENT OF SMALL PULMONARY NODULES DETECTED ON CT Note: Recommendations do not apply for lung cancer screening, patients with immunosuppression or with known cancer. Dimensions are average of long and short axis rounded to the millimeter MULTIPLE NODULES: LOW RISK PATIENT (Use most suspicious nodule to manage guidelines) All <6mm - No follow up Any >6mm - 3-6 months, then consider 18-24 months MULTIPLE NODULES: HIGH RISK PATIENT (Use most suspicious nodule to manage guidelines) All <6mm - No follow up Any >6mm - 3-6 months, then 18-24 months SUBSOLID NODULE: SINGLE GROUND GLASS OPACITY <6mm - No follow up 6mm or greater - 6-12 months, then every 2 years until 5 years SUBSOLID NODULE: PART SOLID <6mm - No follow up 6mm or greater - 3-6 months, then if solid component <6mm and unchanged every year until 5 years MULTIPLE SUBSOLID NODULES: All <6mm - 3-6 months, then if stable 24 and 48 months 6mm or greater - 3-6 months, subsequent management based upon most suspicious nodule Report Dictated on Electronically Signed By: Jesus Marcano MD Electronically Signed Date/Time: 11/20/2022 2:27 PM EDT XR chest 1 view Final Result FINDINGS/IMPRESSION: Limitations: No significant limitations. Lines, tubes, and devices: None Cardiomediastinal silhouette: Heart size is within normal limits. Lungs/Pleura: Background of chronic lung changes including biapical pleural-parenchymal scarring. Mild bibasilar atelectasis. No sizable pleural effusions. No pneumothorax. Osseous structures: Degenerative spondylosis in the visualized spine. Soft tissues: No soft tissue abnormality is detected. Report Dictated on Electronically Signed By: Jesus Marcano MD Electronically Signed Date/Time: 11/20/2022 10:48 AM EDT LABS: Labs Reviewed BASIC METABOLIC PANEL - Abnormal Result Value SODIUM 139 POTASSIUM 4.1 CHLORIDE 107 CARBON DIOXIDE 25 UREA NITROGEN 15 CREATININE 0.60 GLUCOSE 102 (*) CALCIUM 8.6 ANION GAP 8 eGFR >90.0 CBC WITH AUTO DIFFERENTIAL - Abnormal Auto WBC 6.7 RBC 4.56 Hemoglobin 14.6 Hematocrit 43.4 MCV 95.3 MCH 32.0 MCHC 33.5 RDW 12.9 Platelets 223 MPV 9.1 nRBC 0.0 Neutrophils Relative 69.3 Lymphocytes Relative 19.3 (*) Monocytes Relative 9.1 Eosinophils Relative 1.7 Basophils Relative 0.6 Neutrophils Absolute 4.7 Lymphocytes Absolute 1.3 Monocytes Absolute 0.6 Eosinophils Absolute 0.1 Basophils Absolute 0.0 D-DIMER,QUANTITATIVE - Abnormal D-DIMER, INNOVANCE 0.79 (*) Narrative: Innovance D-Dimer values of <0.50 mg/L FEU can be used in combination with a pre-test probability model (e.g. Well's) to exclude pulmonary embolism (PE) disease, as well as an aid in the diagnosis of deep vein thrombosis (DVT). TROPONIN I - Normal TROPONIN I <0.012 Narrative: Patients with high levels of Biotin oral intake (ie >5 mg/day) may have falsely decreased Troponin levels. NT PRO BNP - Normal NT PRO BNP 84 All other labs were within normal range or not returned as of this dictation. EMERGENCY DEPARTMENT COURSE and DIFFERENTIAL DIAGNOSIS/MDM: Vitals: Vitals: 11/20/22 0904 11/20/22 1144 11/20/22 1433 BP: 116/87 (!) 163/64 (!) 143/60 BP Location: Left arm Left arm Patient Position: Lying Sitting Pulse: 78 67 60 Resp: 16 18 Temp: 36.6 C (97.9 F) TempSrc: Temporal SpO2: 98% 98% 98% The patient presented with a chief complaint of intermittent chest pain, shortness of breath, palpitations and dizziness with activity. The differential diagnosis associated with this patient's presentation includes ACS, DC, new onset heart failure, pulmonary embolism, orthostatic hypotension, pneumonia, pneumothorax. Patient is alert, oriented, pleasant and interactive, in no apparent distress. Answers all questions appropriately. Vital signs are stable. Our workup consisted of ordering/reviewing CBC, BMP, BNP, troponin, D-dimer, chest x-ray, EKG. EKG shows sinus rhythm with an incomplete left bundle branch block, there is no previous EKG for comparison. Troponin is within defined limits. BNP is normal. CBC and BMP are within defined limits. D-dimer is elevated at 0.79. Patient's age-adjusted D-dimer is 0.76, so a CTA of the chest is added on for further evaluation of possible pulmonary embolism as a source for her symptoms. Chest x-ray Radiology interpretation shows chronic lung changes including biapical pleural-parenchymal scarring, and mild bibasilar atelectasis without sizable pleural effusion or pneumothorax. CTA of the chest shows no evidence of pulmonary embolism, but does show biapical pleural-parenchymal scarring with scattered areas of mosaic attenuation and interlobular septal thickening. There is also a 10 x 7 mm subpleural nodule anterior left upper lobe and an additional 5 mm pulmonary nodule in the right lung apex. I discussed these findings with the patient and her at the bedside, and recommended outpatient pulmonology follow-up in regards to her nodules and lung scarring. I do not believe that these findings are the cause of her palpitations, shortness of breath, dizziness but they should be followed up on. Vital signs have remained stable, CBC and BMP are within defined limits, BNP is normal, troponin is normal. Heart score is a 3 and patient is denying any chest pain. I entered into shared decision-making conversation with the patient during which I offered admission to observation for Cardiologic consultation, and continued evaluation, but patient elects to go home and follow-up with her machine spreader on an outpatient basis. She is scheduled for an ECHO on December 01 and is advised to make an appointment with her machine spreader for soon as possible. Advised the patient to follow-up with her PCP, with her machine spreader and with pulmonology for continued evaluation and management of her symptoms and her incidental findings. Advised patient to return to the ED immediately if she has any new or worsening symptoms to include worsening shortness of breath, palpitations, chest pain, dizziness, lightheadedness, syncope, presyncope, fevers, chills, nausea, vomiting, abdominal pain, weakness, numbness, tingling or if she has any new symptoms or concerns. Discussed signs/symptoms most concerning that necessitate immediate return. Patient verbalizes understanding of these return precautions, and is given opportunity ask any questions they may have. Patient denies further questions/comments/concerns, is understanding and agreeable to stated plan, and is discharged home in stable condition. ED Course as of 11/20/22 1539 WedNov 20, 2022 1017 ECG 12 lead Sinus rhythm Incomplete left bundle branch block Minimal ST elevation, anterior leads No previous ECG available for comparison [KEYA] ED Course User Index [KEYA] Phil Burgess MD Diagnoses as of 11/20/22 1539 SOB (shortness of breath) Palpitations Lung nodule seen on imaging study ED Medications managed: Medications iopamidol (Isovue-370) 76 % injection 75 mL (75 mL IntraVENous Given 11/20/22 1401) PROCEDURES: Unless otherwise noted below, none Procedures FINAL IMPRESSION 1. SOB (shortness of breath) 2. Palpitations 3. Lung nodule seen on imaging study DISPOSITION Discharge 11/20/2022 03:24:55 PM PATIENT REFERRED TO: [facility] [address] [place] [id number] Schedule an appointment as soon as possible for a visit in 1 week Rodriguez Franco MD [address] [facility] [address] Schedule an appointment as soon as possible for a visit in 2 days [facility] ED [address] [place] [facility] [address] [facility] [address] [place] [facility] [address] Go to If symptoms worsen Bryon Vee MD [address], [place], [address] [facility] [address] Schedule an appointment as soon as possible for a visit in 2 days DISCHARGE MEDICATIONS: New Prescriptions No medications on file (Comment: Please note this report has been produced using speech recognition software and may contain errors related to that system including errors in grammar, punctuation, and spelling, as well as words and phrases that may be inappropriate. If there are any questions or concerns please feel free to contact the dictating provider for clarification.) Es Camejo PA-C (electronically signed) Emergency Medicine Provider Es Camejo PA-C 11/20/22 1539 [facility] [employer] documented in this encounter [facility] [employer] note* Diagnosis SOB (shortness of breath)- Primary Shortness of breath Palpitations Lung nodule seen on imaging study documented in this encounter [facility]* Diagnosis Solitary pulmonary nodule- Primary Dizziness Dizziness and giddiness Elevated BP without diagnosis of hypertension documented in this encounter [facility]* Diagnosis Medicare annual wellness visit, initial- Primary Elevated BP without diagnosis of hypertension Screening for diabetes mellitus Screening for ischemic heart disease documented in this encounter [facility]* Diagnosis Palpitations- Primary documented in this encounter [facility] HealthReason for referral (narrative)* Consultation (Routine) - Pending Review Specialty Diagnoses / Procedures Referred By Kwan winkler Referred To Contact Pulmonology Diagnoses Lung nodule seen on imaging study Procedures GA OFFICE/OUTPATIENT NEW HIGH MDM 60-74 MINUTES Es Camejo PA-C [address] [place] [address] [facility] [address] [place] [address] Referral ID Status Reason Start Date Expiration Date Visits Requested Visits Authorized [id number] Pending Review Specialty Services Required 11/20/2022 11/20/2023 1 1 [facility] Summary Purpose Family History No Family History Records FoundNo Family History Records FoundNo Family History Records Found Advance Directives Documents on File Type Date Recorded Patient Drug Safety Specialist Expl 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 Additional Source Comments INFORMATION SOURCE (unrecogn ized section and content) DATE CREATED AUTHOR AUTHOR'S ORGANIZ ATION 05/19/2021 [facility] DATE CREATED AUTHOR AUTHOR'S ORGANIZ ATION 01/06/2023 [facility] Care Teams (unrecognized sec tion and content) Teaching Young Relationship Specialty Start Date End Date Rodriguez Franco MD [address] [place], [place] [phone] PCP - General 08/15/18 Teaching Young Relationship Specialty Start Date End Date Rodriguez Franco MD [address] [place] [phone] PCP - General 08/15/18 Teaching Young Relationship Specialty Start Date End Date Rodriguez Franco MD [address] [place] [phone] PCP - General 08/15/18 12/08/22 Moy De Dios MD [address] [place] [phone] PCP - General Family Medicine 12/09/22 Teaching Young Relationship Specialty Start Date End Date Moy De Dios MD [address] [place] [phone] PCP - General Family Medicine 12/09/22 Teaching Young Relationship Specialty Start Date End Date Moy De Dios MD [address] [place] [phone] PCP - General Family Medicine 12/09/22 Reason for Visit (unrecogniz ed section and content) Reason Onset Date Comments Care Coordination 11/25/2022 Ed Nuance- Toan g Nodule Reason Comments New Patient Lung Nodule Multiple nodules ben wed on chest ct Health Maintenance Pt refused all vacci markus, dexa scan, screening hep c Reason Comments Medicare Annual Wellness Visit Subsequen t Blood Work PRN Active and Recently Administ ered Medications (unrecognized section and content) FOR RECORDS PERTAINING TO PATIENTS WHO ARE OR HAVE BEEN ENROLLED IN A CHEMICAL DEPENDENCY/SUBSTANCEABUSE PROGRAM, SOME INFORMATION MAY BE OMITTED. This clinical summary was aggregated from multiple sources. Caution should be exercised in using it in the provision of clinical care. This summary normalizes information from multiple sources, and as a consequence, information in this document may materially change the coding, format and clinical context of patient data. In addition, data may be omitted in some cases. CLINICAL DECISIONS SHOULD BE BASED ON THE PRIMARY CLINICAL RECORDS. [employer] provides no warranty or guarantee of the accuracy or completeness of information in this document.
== END | disposition home or self-care (01) ==
LOC: CT 12:50
PROVIDERS: PCP Family Medicine; Referring Provider Internal Medicine Pulmonary Disease; Visit Provider Internal Medicine Pulmonary Disease
DX: R91.1 Solitary pulmonary nodule (principal)
CPT/HCPCS: 71250

== ENCOUNTER → 2023-11-13 | Outpatient (CLI) | payer MEDICARE, SELFPAY ==
--- NOTE | 2023-11-13 10:21 | CT_ITS ---
INDICATION: NODULE EXAMINATION: CT CHEST WITHOUT CONTRAST - CT Chest W/O Contrast Injection TECHNIQUE: Helically acquired images were obtained of the chest. A radiation dose optimization technique was used for this scan. IV Contrast dosage and agent: None. COMPARISON: Chest CT 05/13/2023, PET scan 12/01/2022 (report only). FINDINGS: LUNGS, PLEURA AND LARGE AIRWAYS: No masses, consolidation, or edema. Bilateral pleural and parenchymal fibrotic densities of the bilateral lung apices. There are scattered subpleural and interlobular septal thickening in the mid and lower lung zones. No pneumothorax. THYROID: No thyroid lesions. HEART AND PERICARDIUM: Heart size is normal. No pericardial effusion. CORONARY ARTERIES: Coronary artery calcification is seen. VESSELS: Thoracic aorta is not dilated. Atherosclerosis of the thoracic aorta. MEDIASTINUM AND KRYSTEN: No mediastinal or hilar adenopathy. Esophagus is unremarkable. No hiatal hernia. UPPER ABDOMEN: No acute pathology. BONES: No suspicious lytic or blastic abnormality. CT/Chest without Contrast IMPRESSION: 1. Since 05/13/2023, no interval change. No new or enlarging pulmonary nodule/mass. 2. Scattered parenchymal fibrosis including the bilateral lung apices. Electronically Signed: Gopi Carrasco MD ([place]) at 11:03 EDT ,
== END | disposition home or self-care (01) ==
LOC: CT 10:06
PROVIDERS: PCP Family Medicine; Referring Provider Internal Medicine Pulmonary Disease; Visit Provider Internal Medicine Pulmonary Disease
DX: R91.1 Solitary pulmonary nodule (principal); R06.00 Dyspnea, unspecified
CPT/HCPCS: 71250

== ENCOUNTER → 2024-12-01 | Outpatient (CLI) | payer MEDICARE, SELFPAY ==
--- OUTSIDE RECORDS SUMMARY | 2024-12-01 06:35 | XMS RPT_ITS | CCD ---
Author Organization [facility] Care Team Providers Care Side Guider Name Role Phone Joan FRIEDMAN, Rodriguez Primary Care Provider Rodriguez Franco MD Primary Care Provider Moy De Dios MD Primary Care Provider Josie Honeycutt V Referring Unavailable SibJosie duarte V Attending Unavailable Moy De Dios Primary Care Unavailable Moy De Dios Primary Care Unavailable Sibilia, Josie V Referring Unavailable SibJosie duarte V Attending Unavailable MOY DE DIOS Primary Care Unavailable ITZEL HWANG Attending Unavailable MOY DE DIOS Attending Unavailable MOY DE DIOS Primary Care Unavailable MOY DE DIOS Attending Unavailable MOY DE DIOS Primary Care Unavailable Allergies Allergy Classification Reported Allergen(s) Allergy Type Date of Onset Reaction(s) Facility (13 sources) Lidocaine Drug Allergy 12-08-2022 [facility] Medications Current Medications Medication Drug Class(es) Dates Sig (Normalized) Sig (Original) fluconazole 150 mg oral tablet (1 source) Azole Antifungal Start: 10-25-2024 End: 10-26-2024 fluconazole (Diflucan) 150 MG tablet Indications: Vaginal irritation Take 1 tablet (150 mg) by mouth See administration instructions for 1 day. Take one tab now. Repeat in 3 days if symptoms persist. 2 tablet 10/25/2024 10/26/2024 Active Meclizine (11 sources) Antiemetic MECLIZINE HCL PO Take by mouth. Active MECLIZINE HCL PO Take by mouth. 0 Active Misc Natural Products (PUMPK IN SEED OIL PO) (11 sources) Misc Natural Pro ducts (PUMPKIN SEED OIL PO) Take by mouth. Active Misc Natural Pro ducts (PUMPKIN SEED OIL PO) Take by mouth. 0 Active Multiple Vitamin (MULTIVITAM IN ADULT PO) (11 sources) Multiple Vitamin (MULTIVITAMIN ADULT PO) Take by mouth. Active Multiple Vitamin (MULTIVITAMIN ADULT PO) Take by mouth. 0 Active Completed/Discontinued Medications Medication Drug Class(es) Dates Sig (Normalized) Sig (Original) cholecalciferol 0.125 mg oral capsule (2 sources) Vitamin D End: 01-05-2023 take 1 capsule by mouth once daily cholecalciferol (Vitamin D-3) 125 MCG (5000 UT) capsule Take 1 capsule by mouth daily. 0 01/05/2023 Discontinued (Therapy completed) 60 actuat fluticasone propionate 0.232 mg/actuat / salmeterol xinafoate 0.014 mg/actuat dry powder inhaler (2 sources) Corticosteroid, beta2-Adrenergi c Agonist Start: 12-22-2022 End: 07-13-2023 take 1 puff(s) by inhalation twice daily fluticasone-salmeter ol (AirDuo RespiClick) 232-14 MCG/ACT inhaler Inhale 1 puff 2 times daily. 0 12/22/2022 07/13/2023 Discontinued (Med list cleanup) Fluticasone-Umeclidin -Vilant (TRELEGY ELLIPTA IN) (2 sources) End: 01-05-2023 Fluticasone-Umeclidi n-Vilant (TRELEGY ELLIPTA IN) Inhale. 0 01/05/2023 Discontinued (Therapy completed) Fluticasone-Umec lidin-Vilant (TRELEGY ELLIPTA IN) Inhale. 0 Active iopamidol (Isovue-370) 76 % injection 75 mL (2 sources) Start: 11-20-2022 End: 11-20-2022 iopamidol (Isovue-370) 76 % injection 75 mL Problems Active Problems Problem Classification Problem Date Documented Date Episodic/Chronic Asthma (17 sources) Mild intermittent asthma; Translations: [Mild intermittent asthma, uncomplicated] Onset: 07-13-2023 07-13-2023 Chronic Cardiac dysrhythmias (1 source) Ventricular premature complex; Translations: [Ventricular premature depolarization] Chronic Cardiac dysrhythmias (3 sources) Palpitations; Translations: [Palpitations] 11-20-2022 Episodic Other female genital disorders (2 sources) Vaginal irritation; Translations: [Other specified noninflammatory disorders of vagina] Onset: 10-25-2024 10-25-2024 Episodic Other female genital disorders (2 sources) Other specified noninflammatory disorders of vagina; Translations: [Other specified noninflammatory disorders of vagina] Onset: 10-25-2024 Episodic Other lower respiratory disease (9 sources) Fibrosis of lung; Translations: [Pulmonary fibrosis, unspecified] Onset: 07-04-2024 07-04-2024 Chronic Other lower respiratory disease (1 source) Pulmonary fibrosis, unspecified; Translations: [Pulmonary fibrosis, unspecified (HCC)] Onset: 07-04-2024 Chronic Other lower respiratory disease (2 sources) Dyspnea; Translations: [Shortness of breath] 11-20-2022 Episodic Other lower respiratory disease (2 sources) Nodule of lung; Translations: [Solitary pulmonary nodule] 11-20-2022 Episodic Other lower respiratory disease (1 source) Solitary pulmonary nodule; Translations: [Solitary pulmonary nodule] Onset: 12-07-2023 Episodic Residual codes; unclassified (2 sources) Influenza vaccination declined; Translations: [Immunization not carried out because of patient refusal] 01-11-2024 Episodic Viral infection (1 source) Disease caused by 2019-nCoV; Translations: [COVID-19] Episodic Past or Other Problems Problem Classification Problem Date Documented Da te Episodic/Chronic Conditions associated with dizziness or vertigo (14 sources) Dizziness; Translations: [Dizziness and giddiness] Onset: 12-09-2022 12-09-2022 Episodic Other circulatory disease (15 sources) Elevated blood-pressure reading without diagnosis of hypertension; Translations: [Elevated blood-pressure reading, without diagnosis of hypertension] Onset: 12-09-2022 Resolved: 07-13-2023 12-09-2022 Episodic Other lower respiratory disease (15 sources) Solitary nodule of lung; Translations: [Solitary pulmonary nodule] Onset: 12-01-2022 12-09-2022 Episodic Other screening for suspected conditions (not mental disorders or infectious disease) (10 sources) Patient encounter status; Translations: [Encounter for screening for diabetes mellitus] Onset: 01-11-2024 01-05-2023 Episodic Residual codes; unclassified (2 sources) Immunization not carried out because of patient refusal; Translations: [Immunization not carried out because of patient refusal] Onset: 01-11-2024 Episodic Results Test Name Value Interpretation Reference Range Facility 36on 10-31-2024 36 She may have had a yeast infection and it just cleared up with zwdh-bsc-qsjunoa medication that she had done before we did the swab. I am glad she is feeling better. Normal [facility] Office Visiton 10-25-2024 Follow-up visit [id number] Castro Stokes 1945 F Date Provider Department Center 10/25/2024 [id number] HWANG [facility] Family History Problem Relation Age of Onset Emphysema Mother Family Status - Relation Status Age at Mother Father Level of Service:87901 OR OFFICE/OUTPATIENT ESTABLISHED LOW MDM 20 MIN Reason for Visit and Comments: Vaginal Itching [846146] - Normal [facility] Progress Noteon 10-25-2024 Progress Note UA negative. Symptom s most likely secondary to a fungal infection. Did have some improvement with wdgg-ocn-ofbfrok antifungal. Will obtain fungal culture and send prescription for Diflucan Normal [facility] Progress Note 10/25/2024 Danii Stokes (: 1945) is a 79 y.o. female , Established patient, here for evaluation of the following chief complaint(s): Vaginal Itching (/) ASSESSMENT/PLAN: 1. Vaginal irritation Assessment & Plan: UA negative. Symptoms most likely secondary to a fungal infection. Did have some improvement with zcks-jfb-gznduek antifungal. Will obtain fungal culture and send prescription for Diflucan Orders: - Fungal Culture - POCT Urinalysis dipstick - fluconazole (Diflucan) 150 MG tablet; Take 1 tablet (150 mg) by mouth See administration instructions for 1 day. Take one tab now. Repeat in 3 days if symptoms persist., Starting 10/25/2024, Until Lisa 10/26/2024 at 2359, Normal Follow up if symptoms worsen or fail to improve. SUBJECTIVE/OBJECTIVE: HPI - Danii Stokes (: 1945) is a 79 y.o. female , Established patient, here for the evaluation of the following chief complaint(s): Vaginal Itching (/) Reports vaginal itching for about 10 days. Minimal discharge. Reports using kpbc-rag-lflhbda Miconazole suppositories x 3 days and topical. Was swollen and sore and was itching bad, is now better. Still slightly itching. No fever, no n/v. Swelling has much improved. Current Medications[1] Review of Systems Constitutional: Negative. Respiratory: Negative. Cardiovascular: Negative. Gastrointestinal: Negative. Genitourinary: Negative for difficulty urinating, dysuria, vaginal bleeding and vaginal discharge. Vaginal itching Vitals: 10/25/24 1328 10/25/24 1408 BP: (!) 144/59 107/60 Pulse: 67 73 Resp: 20 Temp: 37 ?C (98.6 ?F) TempSrc: Infrared SpO2: 95% Weight: 137 lb 6.4 oz (62.3 kg) Physical Exam Constitutional: Appearance: Normal appearance. Pulmonary: Effort: Pulmonary effort is normal. Genitourinary: Vagina: Erythema present. No vaginal discharge or bleeding. Cervix: Normal and dilated. Adnexa: Right adnexa normal and left adnexa normal. Comments: Labia minora slightly swollen with erythema Neurological: Mental Status: She is alert and oriented to person, place, and time. An electronic signature was used to authenticate this note. Itzel Hwang, NOAH - VIC 10/25/2024 5:13 PM [1] Current Outpatient Medications Medication Sig Dispense Refill fluconazole (Diflucan) 150 MG tablet Take 1 tablet (150 mg) by mouth See administration instructions for 1 day. Take one tab now. Repeat in 3 days if symptoms persist. 2 tablet 0 MECLIZINE HCL PO Take by mouth. Misc Natural Products (PUMPKIN SEED OIL PO) Take by mouth. Multiple Vitamin (MULTIVITAMIN ADULT PO) Take by mouth. No current facility-administered medications for this visit. Normal [facility] Progress Note Patient was identified by name and Date of . Patient identified by name and date of . Urine specimen cup labeled with patient name and date of . Urine cup and wipe given to patient. Clean catch urine collected from patient. POCT Urine ordered and signed by provider. POCT urine results entered and were sent to provider. Normal [facility] Urinalysis macro (dipstick) panel (U)on 10-25-2024 Bilirubin, UA Negative [facility] h Glucose, UA Negative [facility] Interpretation and review of laboratory results Normal [facility] Ketones, POC (mg/dL) Negative [facility] Leukocytes, UA Negative [facility] Nitrite, UA Negative [facility] pH, UA 7.0 [facility] Protein, UA Negative [facility] Spec Grav, [facility], [facility] 36on 10-19-2024 36 S: Patient called [facility] clinical access center with complaint of vaginal itching B: started about 10 days ago A: Pt complains of mild itching now after using miconazole suppositories for 3 days. She is also applying Miconazole cream. She said at first there was swelling and redness that are now gone. She denies discharge. R: [facility] appt 10/25 at 140 pm with Fox Hwang. Pt advised to bring photo ID, insurance card, medications with them to their visit if possible. Arrive 15 min prior to appt. Home care advice given to patient: GENITAL HYGIENE: * Keep your genital area clean. Use mild soaps, but do not use them on your vulva. Wash the vulva area only with water. Gently pat the vulva area dry after washing. * Keep your genital area dry. Wear cotton underwear or underwear with a cotton crotch. * Use unscented 100% cotton menstrual pads. * DO NOT douche. * DO NOT use feminine hygiene products or perfumed soaps. *No sexual intercourse, douches or medication intravaginally 48-72 hours before examination Covid questions: Patient advised to call the office back if within the 5 days prior to your office visit if you have symptoms of Covid/Flu or you test positive for Covid. Reason for Disposition Itching or dryness of genital area and nearing menopause or after menopause Protocols used: Vulvar Oewxavzx-FTSGH-YZ Normal [facility] Office Visiton 07-04-2024 Follow-up visit [id number] Castro Stokes 1945 F Date Provider Department Center 07/04/2024 [id number] DE DIOS [facility] Family History Problem Relation Age of Onset Emphysema Mother Family Status - Relation Status Age at Mother Father Level of Service:59917 OR OFFICE/OUTPATIENT ESTABLISHED LOW [facility] 20 MIN Reason for Visit and Comments: Asthma [148] Medication Check [[id number]] - 6 month. Normal [facility] Progress Noteon 07-04-2024 Progress Note Stable, currently on no inhalers. Normal [facility] Progress Note Controlled, currentl y on no inhalers. Normal [facility] Progress Note 07/04/2024 Danii Stokes (: 1945) is a 79 y.o. female , Established patient, here for evaluation of the following chief complaint(s): Asthma and Medication Check (6 month.) ASSESSMENT/PLAN: 1. Mild intermittent asthma without complication Assessment & Plan: Controlled, currently on no inhalers. 2. Pulmonary fibrosis, unspecified (HCC) Assessment & Plan: Stable, currently on no inhalers. Follow up in about 6 months (around 01/04/2025) for AWV. SUBJECTIVE/OBJECTIVE: ANTONINA -Danii comes in today for 6-month follow-up on her asthma says she is doing well with that she has not been using any inhalers she also has pulmonary fibrosis and that seems to be stable also. She has no other complaints, see ROS. Review of Systems Constitutional: Negative for chills and fever. Respiratory: Negative for shortness of breath. Cardiovascular: Negative for chest pain and palpitations. Gastrointestinal: Negative for abdominal pain, blood in stool, constipation and diarrhea. Genitourinary: Negative for dysuria, frequency, hematuria and urgency. Neurological: Negative for weakness and numbness. Psychiatric/Behaviora l: Negative for dysphoric mood. The patient is not nervous/anxious. Vitals: 07/04/24 1019 BP: 120/69 Pulse: 75 SpO2: 94% Weight: 146 lb 12.8 oz (66.6 kg) Height: 5' 3 (1.6 m) Physical [...] authenticate this note. Moy De Dios MD 07/04/2024 10:[address] [facility] Progress Note Patient verified by last name and date of . [facility] 36on 01-12-2024 36 Message released to patient as written. Patient's further questions if applicable: N/A Were all questions from office addressed or relayed to the patient from encounter: Yes [facility] 36 ----- Message from Moy De Dios MD sent at 01/12/2024 7:37 AM EST ----- Blood sugar and chemistry are normal. Cholesterol is good continue low-fat low-cholesterol diet. Left a message to return call. [facility] 36 ----- Message from Moy De Dios MD sent at 01/12/2024 7:37 AM EST ----- Blood sugar and chemistry are normal. Cholesterol is good continue low-fat low-cholesterol diet. Left a message to return call. [facility] Office Visiton 01-11-2024 Follow-up visit [id number] Castro Stokes 1945 F Date Provider Department Center 01/11/2024 [id number] DE DIOS [facility] Family History Problem Relation Age of Onset Emphysema Mother Family Status - Relation Status Age at Mother Father Level of Service:G0439 OR PPPS, SUBSEQ VISIT Reason for Visit and Comments: Medicare Annual Wellness Visit Subsequent [677] Blood Work [712012] Health Maintenance [872] - Pcv 20 vaccine- refuse Hep c screening- refuse Tdap vaccine- refuse Shingles vaccine- refuse Rsv vaccine- refuse Flu vaccine- refuse Covid vaccine- not done Normal [facility] Progress Noteon 01-11-2024 Progress Note Stable, currently no t on any inhalers Normal [facility] Progress Note Patient verified by last name and date of . Normal [facility] Progress Note [facility] [address] [address] Visit Type: Medicare Annual Wellness PCP: Moy De Dios MD Reason for Visit: Medicare Annual Wellness Visit Subsequent, Blood Work, and Health Maintenance (Pcv 20 vaccine- refuse/Hep c screening- refuse/Tdap vaccine- refuse/Shingles vaccine- refuse/Rsv vaccine- refuse/Flu vaccine- refuse/Covid vaccine- not done) Assessment and Plan Problem List Items Addressed This Visit Mild intermittent asthma without complication Stable, currently not on any inhalers Other Visit Diagnoses Medicare annual wellness visit, subsequent - Primary Screening for diabetes mellitus Relevant Orders Comprehensive metabolic panel Screening for ischemic heart disease Relevant Orders Lipid panel Refused influenza vaccine I have reviewed and reconciled the medication list with the patient today. Current Outpatient Medications Medication Sig Dispense Refill MECLIZINE HCL PO Take by mouth. Misc Natural Products (PUMPKIN SEED OIL PO) Take by mouth. Multiple Vitamin (MULTIVITAMIN ADULT PO) Take by mouth. No current facility-administered medications for this visit. There are no discontinued medications. The following health maintenance schedule was reviewed with the patient and provided in printed form in the after visit summary: Health Maintenance Topic Date Due Influenza Vaccine (1) 08/28/2024 (Originally 10/31/2023) RSV Immunization for Adults (1 - 1-dose 75+ series) 01/10/2025 (Originally 2021) DTaP/Tdap/Td Vaccines (1 - Tdap) 01/10/2025 (Originally 1965) Pneumococcal Vaccine: 65+ Years (1 of 2 - PCV) 01/10/2025 (Originally 1952) Zoster Vaccines (1 of 2) 01/10/2025 (Originally 1996) Hepatitis C Screening 01/10/2025 (Originally 1964) COVID-19 Vaccine ( - 2023-25 season) 2025 (Originally 10/31/2023) Depression Screening 07/11/2024 Medicare Annual Wellness (AWV) 02/09/2025 Bone Density Scan Completed RSV Immunization under 20 Months Aged Out HIB Vaccines Aged Out Hepatitis B Vaccines Aged Out IPV Vaccines Aged Out Hepatitis A Vaccines Aged Out Meningococcal Vaccine Aged Out Rotavirus Vaccines Aged Out HPV Vaccines Aged Out Orders Placed This Encounter Procedures Comprehensive metabolic panel Standing Status: Future Number of Occurrences: 1 Standing Expiration Date: 01/10/2025 Lipid panel Standing Status: Future Number of Occurrences: 1 Standing Expiration Date: 01/10/2025 Follow up in about 6 months (around 07/10/2024). Subjective HPI Danii comes in today for an annual Medicare well visit, she needs follow-up on her asthma which is stable she currently has no inhalers. She denies any other complaints at this time, see ROS. List of current healthcare providers: Patient Care Team: Moy De Dios MD as PCP - General (Family Medicine) Health Risk Assessment: General: General In general, how would you say your health is?: Very good In the past 7 days, have you experienced any of the following: New or Increased Pain, New or Increased Fatigue, Loneliness, Social Isolation, Stress or Anger?: No Do you get the social and emotional suppport you need?: Yes Health Habits/Nutrition: Health Habits / Nutrition On average, how many days per week do you engage in moderate to strenous exercise (like a brisk walk)?: 6 days On average, how man minutes do you engage in exercise at this level?: 30 min Have you lost any weight without trying in the past 3 months? : No Have you seen the dentist within the past year?: (!) No Recommend dental appt Hearing/ Vision: Hearing / Vision Do you or your family notice any trouble with your hearing that hasn't been managed with hearing aids?: No Do you have difficulty driving, watching TV, or doing any of your daily activities because of your eyesight?: No Have you had an eye exam within the past year?: Yes No results found. Safety: Safety Do you have a working smoke detector?: Yes Do you have any tripping hazards - loose or unsecured carpets or rugs?: (!) Yes Do you have any tripping hazards - clutter in doorways, halls, or stairs?: No Do you have either shower bars, grab bars, non-slip mats or non-slip surfaces in your shower or bathtub? : Yes Do all your stairways have a railing or banister? : Yes Do you fasten your seatbelt when you are in a car?: Yes Interventions: ADL: ADL In the past 7 days, did [...] preparation, transportation, or taking medications? : No Living Will: Living Will Do you have a living will?: Yes Cognitive: Cognitive Screening: Mini-Cog Milagros (more content not included)... [facility] Chest without Contraston Chest without Contrast [facility] Imaging Services [address] [place] [address] [id number] Chest without Contrast MR#: [id number] Acct: [id number] Name: DANII STOKES Rep #: [id number] : 1945 F 78 From: Gopi Carrasco MD PCP: Dr. Moy De Dios MD Status: [facility] Study: Chest without Contrast Date of Exam: 11/13/23 Exam# [id number] Ordering Dr: Josie Honeycutt MD [id number] INDICATION: NODULE EXAMINATION: CT CHEST WITHOUT CONTRAST - CT Chest W/O Contrast Injection TECHNIQUE: Helically acquired images were obtained of the chest. A radiation dose optimization technique was used for this scan. IV Contrast dosage and agent: None. COMPARISON: Chest CT 05/13/2023, PET scan 12/01/2022 (report only). __ FINDINGS: LUNGS, PLEURA AND LARGE AIRWAYS: No masses, consolidation, or edema. Bilateral pleural and parenchymal fibrotic densities of the bilateral lung apices. There are scattered subpleural and interlobular septal thickening in the mid and lower lung zones. No pneumothorax. THYROID: No thyroid lesions. HEART AND PERICARDIUM: Heart size is normal. No pericardial effusion. CORONARY ARTERIES: Coronary artery calcification is seen. VESSELS: Thoracic aorta is not dilated. Atherosclerosis of the thoracic aorta. MEDIASTINUM AND KRYSTEN: No mediastinal or hilar adenopathy. Esophagus is unremarkable. No hiatal hernia. UPPER ABDOMEN: No acute pathology. BONES: No suspicious lytic or blastic abnormality. CT/Chest without Contrast IMPRESSION: 1. Since 05/13/2023, no interval change. No new or enlarging pulmonary nodule/mass. 2. Scattered parenchymal fibrosis including the bilateral lung apices. Electronically Signed: Gopi Carrasco MD ([place]) at 11:03 EDT Reading Location ID and State: [address] [place] [address] , Service support , CC: Dr. Moy De Dios MD; Dr. Josie Honeycutt MD Jig Fitter: Signed Normal [facility] Chest without Contraston Chest without Contrast [facility] Imaging Services [address] [place] [address] Chest without Contrast MR#: [id number] Acct: [id number] Name: DANII STOKES Rep #: [id number] : 1945 F 78 From: Ry Hare MD PCP: Dr. Moy De Dios MD Status: REG CLI Study: Chest without Contrast Date of Exam: 05/13/23 Exam# [id number] Ordering Dr: Josie Honeycutt MD [id number] INDICATION: Known pulmonary nodules EXAMINATION: CT CHEST WITHOUT CONTRAST - CT Chest W/O Contrast Injection TECHNIQUE: Helically acquired images were obtained of the chest. A radiation dose optimization technique was used for this scan. IV Contrast dosage and agent: None. COMPARISON: Pet/CT from 12/02/2019 __ FINDINGS: LUNGS, PLEURA AND LARGE AIRWAYS: Lung windows show nonspecific pleural thickening in the apices with underlying emphysema and nonspecific pleural thickening in both hemithoraces as well. There is dependent atelectasis without an organized infiltrate, effusion, or suspicious noncalcified mass or nodule. THYROID: No thyroid lesions. HEART AND PERICARDIUM: Heart size is normal. No pericardial effusion. CORONARY ARTERIES: Coronary artery calcification is seen. VESSELS: Thoracic aorta is not dilated. MEDIASTINUM AND KRYSTEN: No suspicious enlarged axillary, mediastinal or hilar adenopathy. There is a small hiatal hernia with evidence of GE reflux. UPPER ABDOMEN: Limited cuts through the upper abdomen show previous cholecystectomy. BONES: No suspicious lytic or blastic abnormality. Degenerative changes noted CT/Chest without Contrast IMPRESSION: Underlying emphysema with nonspecific pleural thickening in both hemithoraces particularly the apices, no organized infiltrate, effusion, or suspicious noncalcified mass or nodule No suspicious adenopathy Degenerative bony changes Electronically Signed: Soren Hare MD at 13:07 EDT , CC: Dr. Moy De Dios MD; Dr. Josie Honeycutt MD Jig Fitter: Signed Normal [facility] Basic metabolic 1998 panelon 11-20-2022 Anion gap [Moles/Vol] 8 mmol/L 3 - 13 mmol/L [facility] [facility] Calcium [Mass/Vol] 8.6 mg/dL 8.4 - 10. 4 mg/dL [facility] Chloride [Moles/Vol] 107 mmol/L 98 - 10 7 mmol/L [facility] CO2 [Moles/Vol] 25 mmol/L 22 - 30 mmol/L [facility] Creatinine [Mass/Vol] 0.60 mg/dL 0.52 - 1.04 mg/dL [facility] GFR/1.73 sq M.predicted MDRD (S/P/Bld) [Vol rate/Area] - PINF [facility] Comment on above: Calculation based on the Chronic Kidney Disease Epidemiology Collaboration (CKD-EPI) equation refit without adjustment for race Glucose [Mass/Vol] 102 mg/dL High 70 - 100 mg/dL [facility] Interpretation and review of laboratory results Abnormal [facility] Potassium [Moles/Vol] 4.1 mmol/L 3.5 - 5.1 mmol/L [facility] Sodium [Moles/Vol] 139 mmol/L 135 - 145 mmol/L [facility] Urea nitrogen [Mass/Vol] 15 mg/dL 7 - 17 mg/dL [facility] CBC W Auto Differential pane l (Bld)Ordered By: Tameka Maya on 11-20-2022 Basophils (Bld) [#/Vol] 0.0 10*3/uL 0.0 - 0.2 10*3/uL [facility] Basophils/100 WBC (Bld) 0.6 % 0.0 - 2.0 % [facility] Eosinophils (Bld) [#/Vol] 0.1 10*3/uL 0.0 - 0.5 10*3/uL [facility] Eosinophils/100 WBC (Bld) 1.7 % 1.0 - 6.0 % [facility] Erythrocyte distribution width (RBC) [Ratio] 12.9 % 11.5 - 14.5 % [facility] Hematocrit (Bld) [Volume fraction] 43.4 % 35.0 - 47.0 % [facility] Hemoglobin (Bld) [Mass/Vol] 14.6 g/dL 11.7 - 16.0 g/dL [facility] Interpretation and review of laboratory results Abnormal [facility] Lymphocytes (Bld) [#/Vol] 1.3 10*3/uL 1.0 - 4.3 10*3/uL [facility] Lymphocytes/100 WBC (Bld) 19.3 % Low 20.0 - 40.0 % [facility] MCH (RBC) [Entitic mass] 32.0 pg 26.0 - 34.0 pg [facility] MCHC (RBC) [Mass/Vol] 33.5 % 32.0 - 36.0 % [facility] MCV (RBC) [Entitic vol] 95.3 fL 80.0 - 98.0 fL [facility] Monocytes (Bld) [#/Vol] 0.6 10*3/uL 0.0 - 0.8 10*3/uL [facility] Monocytes/100 WBC (Bld) 9.1 % 2.0 - 10.0 % [facility] Neutrophils (Bld) [#/Vol] 4.7 10*3/uL 1.8 - 7.0 10*3/uL [facility] Neutrophils/100 WBC (Bld) 69.3 % 40.0 - 80.0 % [facility] Nucleated RBC/100 WBC (Bld) [Ratio] 0.0 % [facility] Platelet mean volume (Bld) [Entitic vol] 9.1 fL 7.4 - 12.4 fL [facility] Platelets (Bld) [#/Vol] 223 10*3/uL 140 - 440 10*3/uL [facility] RBC (Bld) [#/Vol] 4.56 10*6/uL 3.8 - 5.20 10*6/uL [facility] WBC (Bld) [#/Vol] 6.7 10*3/uL 3.6 - 10.7 10*3/uL [facility] [employer] [facility] CTA Chest vessels WO and W c ontrast Brittany 11-20-2022 1. No CTA evidence o f acute pulmonary embolism. 2. Biapical pleural-parenchymal scarring [...] MD Electronically Signed Date/Time: 11/20/2022 2:27 PM [facility] Patient Name: DANII STOKES : 1945 [id number] Exam Date/Time: 11/20/2022 14:01 Procedure: CT CHEST ANGIOGRAM W AND/OR WO IV CONTRAST Ordering Provider: WALL HAYLEY Reason For Exam: Pulmonary embolism (PE) suspected, positive D-dimer CTA CHEST WITH CONTRAST CLINICAL INDICATION: Chest pain and shortness of breath. TECHNIQUE: Axial CT images through the were obtained from the lung apices through the upper abdomen after a bolus tracked intravenous contrast injection over the pulmonary arteries. 75 cc of Isovue 370 contrast was given intravenously. Three-dimensional and surface-shaded reconstructions were performed by myself on a separate workstation at the time of dictation. Dose reduction was employed with automated exposure control. COMPARISON: Correlation is made to chest radiographs 11/25/2020. FINDINGS: Limitations: Somewhat limited by motion and streak artifact. Heart/mediastinum: Heart size is within normal limits. Thoracic aorta and pulmonary trunk are normal in caliber. No filling defects within the pulmonary arterial tree to suggest acute pulmonary embolism. Mild to moderate atherosclerotic calcifications with involvement of the coronary arteries. A few prominent perihilar lymph nodes without suspicious bulky adenopathy Lungs/pleura: Biapical pleural-parenchymal scarring with scattered areas of mosaic attenuation and interlobular septal thickening. There is mild peribronchial cuffing. 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 On series 4 image 67 10 x 7 mm subpleural nodule anterior left upper lobe. 5 mm incidental nodule right lung apex on image 67. No pleural effusions or pneumothorax. Central tracheobronchial tree appears patent. Visualized upper abdomen: Tiny sliding-type hiatal hernia. Status post cholecystectomy with slight ectasia common bile duct. Visualized portions of the liver appear within normal limits as does the spleen. No adrenal mass or nodule. Moderate mixed atherosclerotic plaque Osseous structures/soft tissues: Osseous structures appear somewhat demineralized. Multilevel degenerative spondylosis in the visualized spine with Schmorl's nodes deformities present. No suspicious bulky axillary adenopathy. [facility] Leroy Marcano MD - 11/20/2022 Patient Name: DANII STOKES : 1945 [id number] Exam Date/Time: 11/20/2022 14:01 Procedure: CT CHEST ANGIOGRAM W AND/OR WO IV CONTRAST Ordering Provider: WALL HAYLEY Reason For Exam: Pulmonary embolism (PE) suspected, positive D-dimer CTA CHEST WITH CONTRAST CLINICAL INDICATION: Chest pain and shortness of breath. TECHNIQUE: Axial CT images through the were obtained from the lung apices through the upper abdomen after a bolus tracked intravenous contrast injection over the pulmonary arteries. 75 cc of Isovue 370 contrast was given intravenously. Three-dimensional and surface-shaded reconstructions were performed by myself on a separate workstation at the time of dictation. Dose reduction was employed with automated exposure control. COMPARISON: Correlation is made to chest radiographs 11/25/2020. FINDINGS: Limitations: Somewhat limited by motion and streak artifact. Heart/mediastinum: Heart size is within normal limits. Thoracic aorta and pulmonary trunk are normal in caliber. No filling defects within the pulmonary arterial tree to suggest acute pulmonary embolism. Mild to moderate atherosclerotic calcifications with involvement of the coronary arteries. A few prominent perihilar lymph nodes without suspicious bulky adenopathy Lungs/pleura: Biapical pleural-parenchymal scarring with scattered areas of mosaic attenuation and interlobular septal thickening. There is mild peribronchial cuffing. 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 On series 4 image 67 10 x 7 mm subpleural nodule anterior left upper lobe. 5 mm incidental nodule right lung apex on image 67. No pleural effusions or pneumothorax. Central tracheobronchial tree appears patent. Visualized upper abdomen: Tiny sliding-type hiatal hernia. Status post cholecystectomy with slight ectasia common bile duct. Visualized portions of the liver appear within normal limits as does the spleen. No adrenal mass or nodule. Moderate mixed atherosclerotic plaque Osseous structures/soft tissues: Osseous structures appear somewhat demineralized. Multilevel degenerative spondylosis in the visualized spine with Schmorl's nodes deformities present. No suspicious bulky axillary adenopathy. IMPRESSION: 1. No CTA evidence of acute pulmonary [...] Electronically Signed Date/Time: 11/20/2022 2:27 PM EDT [facility] Radiology Study observation (narrative) [facility] Fibrin D-dimer FEU (PPP) [Ma ss/Vol]on 11-20-2022 Interpretation and review of laboratory results Abnormal [facility] D-Dimer values of <0.50 mg/L FEU can be used in combination with a pre-test probability model (e.g. Well's) to exclude pulmonary embolism (PE) disease, as well as an aid in the diagnosis of deep vein thrombosis (DVT). [facility] Laboratory - Chemistry and C hemistry - challengeon 11-20-2022 Troponin I.cardiac [Mass/Vol] ng/mL NINF - 0.034 ng/mL [facility] Laboratory - Coagulationon 0 11-20-2022 Fibrin D-dimer FEU (PPP) [Mass/Vol] 0.79 mg/L High NINF - 0.50 mg/L [facility] Natriuretic peptide B [Mass/ Vol]on 11-20-2022 Natriuretic peptide B (Bld) [Mass/Vol] 84 pg/mL <20 - 300 [facility] No Panel Informationon 11-20 Interpretation and review of laboratory results Normal [facility] Sinus rhythm Incomplete left bundle branch block Minimal ST elevation, anterior leads No previous ECG available for comparison Electronically Signed On 11-20-2022 10:17:35 EDT by Darrell Tillman CV Darrell Umana MD - 11/20/2022 IMPRESSION: Sinus rhythm Incomplete left bundle branch block Minimal ST elevation, anterior leads No previous ECG available for comparison Electronically Signed On 11-20-2022 10:17:35 EDT by Darrell Tillman [facility] Revision3 Panel InformationOrdered By: Darrell Tillman on 11-20-2022 P Adams 60 degrees [employer] Work Phone: OR Interval 139 ms [facility] Work Phone: QRS Adams 18 degrees [employer] Work Phone: QRSD Interval 107 ms [facility] [employer] Work Phone: QT Interval 394 ms [employer] Work Phone: QTC Interval 442 ms [facility] Work Phone: T Wave Adams 59 degrees [employer] Work Phone: [employer] Work Phone: Troponin I.cardiac [Mass/Vol ]on 11-20-2022 Patients with high levels of Biotin oral intake (ie >5 mg/day) may have falsely decreased Troponin levels. [facility] Vital signsOrdered By: Lexus Tillman on 11-20-2022 Heart rate 75 /min bpm [employer] Work Phone: XR Chest Single viewon 11-20 FINDINGS/IMPRESSION: Limitations: No significant limitations. Lines, tubes, [...] MD Electronically Signed Date/Time: 11/20/2022 10:48 AM T [facility] Patient Name: DANII STOKES : 1945 Exam Date/Time: 11/20/2022 10:46 Procedure: XR CHEST 1 VIEW Ordering Provider: WALL HAYLEY Reason For Exam: CHEST PAIN CHEST - PORTABLE: CLINICAL INDICATION: Chest pain. . TECHNIQUE: Portable AP COMPARISON: 11/25/2020 [facility] Leroy Marcano MD - 11/20/2022 Patient Name: DANII STOKES : 1945 Exam Date/Time: 11/20/2022 10:46 Procedure: XR CHEST 1 VIEW Ordering Provider: WALL HAYLEY Reason For Exam: CHEST PAIN CHEST - PORTABLE: CLINICAL INDICATION: Chest pain. . TECHNIQUE: Portable AP COMPARISON: 11/25/2020 IMPRESSION: FINDINGS/IMPRESSION: Limitations: No significant limitations. Lines, tubes, [...] Electronically Signed Date/Time: 11/20/2022 10:48 AM EDT [facility] Radiology Study observation (narrative) [facility] XR Chest Single viewOrdered By: Leroy Marcano on 11-20-2022 [facility] Work Phone: Basic metabolic 1998 panelon 11-13-2022 Anion gap [Moles/Vol] 8 mmol/L 3 - 13 mmol/L [facility] Calcium [Mass/Vol] 8.8 mg/dL 8.4 - 10. 4 mg/dL [facility] Chloride [Moles/Vol] 106 mmol/L 98 - 10 7 mmol/L [facility] CO2 [Moles/Vol] 24 mmol/L 22 - 30 mmol/L [facility] Creatinine [Mass/Vol] 0.60 mg/dL 0.52 - 1.04 mg/dL [facility] GFR/1.73 sq M.predicted MDRD (S/P/Bld) [Vol rate/Area] - PINF [facility] Comment on above: Calculation based on the Chronic Kidney Disease Epidemiology Collaboration (CKD-EPI) equation refit without adjustment for race Glucose [Mass/Vol] 113 mg/dL High 70 - 100 mg/dL [facility] Interpretation and review of laboratory results Abnormal [facility] Potassium [Moles/Vol] 3.8 mmol/L 3.5 - 5.1 mmol/L [facility] Sodium [Moles/Vol] 139 mmol/L 135 - 145 mmol/L [facility] Urea nitrogen [Mass/Vol] 14 mg/dL 7 - 17 mg/dL [facility] Magnesiumon 11-13-2022 Magnesium [Mass/Vol] 2.0 mg/dL 1.6 - 2 .3 mg/dL [facility] Magnesium [Mass/Vol]on 11-13 Interpretation and review of laboratory results Normal [facility] No Panel Informationon 11-13 [facility] CBC panel Auto (Bld)on 03-19 Erythrocyte distribution width (RBC) [Ratio] 13.1 % 11.5 - 14.5 % [facility] Hematocrit (Bld) [Volume fraction] 39.4 % 35.0 - 47.0 % [facility] Hemoglobin (Bld) [Mass/Vol] 13.7 g/dL 11.7 - 16.0 g/dL [facility] Interpretation and review of laboratory results Normal [facility] MCH (RBC) [Entitic mass] 33.1 pg 26.0 - 34.0 pg [facility] MCHC (RBC) [Mass/Vol] 34.8 % 32.0 - 36.0 % [facility] MCV (RBC) [Entitic vol] 95.2 fL 80.0 - 98.0 fL [facility] Platelet mean volume (Bld) [Entitic vol] 10.8 fL 7.4 - 12.4 fL [facility] Comment on above: MPV is a calculated measurement using platelet volume ratio Platelets (Bld) [#/Vol] 261 10*3/uL 140 - 440 10*3/uL [facility] RBC (Bld) [#/Vol] 4.14 10*6/uL 3.8 - 5.20 10*6/uL [facility] WBC (Bld) [#/Vol] 7.1 10*3/uL 3.6 - 10.7 10*3/uL [facility] Comprehensive metabolic 1998 panelon 03-19-2022 Albumin [Mass/Vol] 4.2 g/dL 3.5 - 5.0 g/dL [facility] ALP [Catalytic activity/Vol] 70 U/L 38 - 126 U/L [facility] ALT [Catalytic activity/Vol] 20 U/L 0 - 34 U/L [facility] Anion gap [Moles/Vol] 3 mmol/L 3 - 13 mmol/L [facility] AST [Catalytic activity/Vol] 30 U/L 15 - 46 U/L [facility] Bilirubin [Mass/Vol] 0.7 mg/dL 0.2 - 1 .3 mg/dL [facility] Calcium [Mass/Vol] 8.7 mg/dL 8.4 - 10. 4 mg/dL [facility] Chloride [Moles/Vol] 109 mmol/L High 98 - 10 7 mmol/L [facility] CO2 [Moles/Vol] 28 mmol/L 22 - 30 mmol/L [facility] Creatinine [Mass/Vol] 0.64 mg/dL 0.52 - 1.04 mg/dL [facility] GFR/1.73 sq M.predicted MDRD (S/P/Bld) [Vol rate/Area] - PINF [facility] Comment on above: Calculation based on the Chronic Kidney Disease Epidemiology Collaboration (CKD-EPI) equation refit without adjustment for race Glucose [Mass/Vol] 98 mg/dL 70 - 100 mg/dL [facility] Interpretation and review of laboratory results Abnormal [facility] Potassium [Moles/Vol] 4.0 mmol/L 3.5 - 5.1 mmol/L [facility] Protein [Mass/Vol] 7.4 g/dL 6.3 - 8.2 g/dL [facility] Sodium [Moles/Vol] 140 mmol/L 135 - 145 mmol/L [facility] Urea nitrogen [Mass/Vol] 11 mg/dL 7 - 17 mg/dL [facility] Lipid 1996 panelon 3 Cholesterol [Mass/Vol] 164 mg/dL NINF - 200 mg/dL [facility] Cholesterol in HDL [Mass/Vol] 50 mg/dL 40 - 60 mg/dL [facility] Cholesterol in LDL [Mass/Vol] 94 mg/dL 0 - <100 [facility] Cholesterol.total/Chol esterol in HDL [Mass ratio] 3 {ratio} [facility] Comment on above: Ref Range: < 3 Low Risk for CHD 3-6 Mod Risk for CHD > 6 High Risk for CHD Triglyceride [Mass/Vol] 102 mg/dL NINF - 150 mg/dL [facility] No Panel Informationon 03-19 [facility] CR Knee 3 Views Righton 04-29 CR Knee 3 Views Right Patient Name: DANII HOLCOMB Diagnostic Radiology ACCESSION EXAM DATE/TIME PROCEDURE ORDERING PROVIDER [id number] 05/14/2021 14:41 EDT CR Knee 3 Views Right MD DAPHNEY, MELANY N CPT code 05586 Reason For Exam (CR Knee 3 Views Right) R knee pain Report RIGHT KNEE CLINICAL INDICATION: R knee pain AP, lateral, and patellar plain film views of the right knee were obtained. COMPARISON: None FINDINGS: There is mild narrowing of the patellofemoral joint space. The femorotibial joint spaces are preserved. There is no fracture or knee joint effusion. Heterogeneous intramedullary sclerosis is present in the distal femoral metadiaphysis which is most likely an enchondroma. No other osseous lesion is evident. IMPRESSION: Mild patellofemoral osteoarthritis. No acute findings. Heterogeneous sclerosis in the distal femur, most likely an enchondroma. Report Dictated on Final Dictating Physician: MD BRASHER THOMAS Signed Date and Time: 05/16/2021 10:50 am Signed by: MD BRASHER THOMAS Transcribed Date and Time: 05/16/2021 10:51 Normal [facility] CR Spine Cervical 4+ Viewson 01-16-2021 CR Spine Cervical 4+ Views Patient Name: DANII STOKES Diagnostic Radiology ACCESSION EXAM DATE/TIME PROCEDURE ORDERING PROVIDER [id number] 01/16/2021 12:46 EST CR Spine Cervical 4+ MD JOAN, RODRIGUEZ Howard Views CPT code 76286 Reason For Exam (CR Spine Cervical 4+ Views) neck pain Report CERVICAL SPINE: CLINICAL INDICATION: neck pain TECHNIQUE: AP, AP open mouth, and lateral views were obtained. Additionally, bilateral oblique views were obtained. COMPARISON: None FINDINGS: Predental space and prevertebral soft tissues are within normal limits. There is straightening of normal cervical lordosis. Anterior fixation plate and bilateral anterior vertebral body fixation screws are seen in the C3-C6 levels with no evidence of hardware failure or loosening. There appears to be osseous fusion of the vertebral bodies at the fixated levels. There is 3 mm anterolisthesis of C2 on C3. Alignment is otherwise normal Vertebral body heights remain preserved without evidence of an acute fracture. Moderate degenerative changes are present including diffuse degenerative disc space loss, endplate sclerosis and osteophytosis at the nonfixed levels as well as uncovertebral hypertrophy and facet arthropathy throughout the cervical spine. There is moderate left osseous foraminal narrowing at the C6-7 level with otherwise mild osseous foraminal narrowing seen at several levels in the cervical spine. Scarring is seen within the lung apices. IMPRESSION: C3-C6 ACDF and multilevel degenerative changes in the cervical spine. Report Dictated on Final Dictating Physician: MD MARSH JAMES Signed Date and Time: 01/18/2021 5:47 am Signed by: MD MARSH JAMES Transcribed Date and Time: 01/18/2021 5:48 Normal [facility] CR Chest PA/LATon 11-25-2020 CR Chest PA/LAT Patient Name: DANII TSOKES Diagnostic Radiology ACCESSION EXAM DATE/TIME PROCEDURE ORDERING PROVIDER [id number] 11/25/2020 15:17 EDT CR Chest PA and LAT MD FRANCO RICHARD H CPT code 10403 Reason For Exam (CR Chest PA and LAT) COUGH Report CHEST, PA and LATERAL: INDICATION: Cough COMPARISON: No previous studies are available for comparison. PA and lateral views of the chest were obtained. The heart is normal in size. The mediastinal silhouette is normal. The lungs are clear. There are no effusions or infiltrates. There is no pleural thickening. Arthritic changes of the spine and shoulders are present. IMPRESSION: Negative chest. Report Dictated on Final Dictating Physician: DO SARGENT ALFRED Signed Date and Time: 11/25/2020 4:51 pm Signed by: DO SARGENT ALFRED Transcribed Date and Time: 11/25/2020 4:52 Normal [facility] XR CHEST (2 VW)Ordered By: Rob Franco on 11-25-2020 Patient Name: DANII STOKES Diagnostic Radiology ACCESSION EXAM DATE/TIME PROCEDURE ORDERING PROVIDER [id number] 11/25/2020 15:17 EDT CR Chest PA & LAT MD FRANCO RICHARD H CPT code 49045 Reason For Exam (CR Chest PA & LAT) COUGH Report CHEST, PA & LATERAL: INDICATION: Cough COMPARISON: No previous studies are available for comparison. PA and lateral views of the chest were obtained. The heart is normal in size. The mediastinal silhouette is normal. The lungs are clear. There are no effusions or infiltrates. There is no pleural thickening. Arthritic changes of the spine and shoulders are present. IMPRESSION: Negative chest. Report Dictated on --- Final --- Dictating Physician: DO SARGENT ALFRED Signed Date and Time: 11/25/2020 4:51 pm Signed by: DO SARGENT ALFRED Transcribed Date and Time: 11/25/2020 4:52 [facility] Work Phone: Jose, [facility] Incoming Radiology Results From [facility] - 11/25/2020 4:52 PM EDT Patient Name: DANII STOKES Diagnostic Radiology ACCESSION EXAM DATE/TIME PROCEDURE ORDERING PROVIDER [id number] 11/25/2020 15:17 EDT CR Chest PA & LAT MD JOAN, RODRIGUEZ Howard CPT code 88390 Reason For Exam (CR Chest PA & LAT) COUGH Report CHEST, PA & LATERAL: INDICATION: Cough COMPARISON: No previous studies are available for comparison. PA and lateral views of the chest were obtained. The heart is normal in size. The mediastinal silhouette is normal. The lungs are clear. There are no effusions or infiltrates. There is no pleural thickening. Arthritic changes of the spine and shoulders are present. IMPRESSION: Negative chest. Report Dictated on --- Final --- Dictating Physician: DO SARGENT ALFRED Signed Date and Time: 11/25/2020 4:51 pm Signed by: DO SARGENT ALFRED Transcribed Date and Time: 11/25/2020 4:52 [facility] Work Phone: [facility] Work Phone: Final Surgical Pathology Rep [facility] 06-24-2020 Final Surgical Pathology Report . Pathology Reports Accession: Collected Date/Time: Received Date/Time: Pathologist: [id number] 06/20/2020 13:33 EDT 06/21/2020 14:49 EDT MD RODRIGUEZ BENTON Final Surgical Pathology Report DIAGNOSIS: ENDOMETRIUM - INSUFFICIENT TISSUE FOR EVALUATION. COMMENT: [facility] [id number] CLINICAL INFORMATION: Procedure: DILATION AND CURETTAGE HYSTEROSCOPY Preoperative diagnosis: POSTMENOPAUSAL BLEEDING Postoperative diagnosis: POSTMENOPAUSAL BLEEDING SPECIMEN: A ENDOMETRIAL CURETTINGS GROSS DESCRIPTION: A. Received in formalin, labeled with the patients name, Case #[id number], and endometrial curettings specimen consists of very scant tissue fragments aggregating to 0.1 x 0.1 by less than 0.1 cm. TS -1 Dictated by JOSIE MCKEON MICROSCOPIC DESCRIPTION: Slides reviewed. Electronically Signed by Pathology Report verified by [facility] Electronically signed by RODRIGUEZ BENTON MD Sign out Date: 06/24/2020 14:20 Performing Lab: [facility], [address] [place] [address] ([place]) Comment on above: Performed By: #### S PFR #### [place] [address] .Auto Diffon 06-20-2020 Basophil, Absolute 0.10 10 3/mcL Normal 0.00-0.19 [facility] ([place]) Comment on above: Performed By: #### G FR #### [place] [address] #### CBC, ADIFF, BMP, ANEU #### [address] [address] Basophils/100 WBC (Bld) 0.9 % Normal 0.0-2.5 [facility] ([place]) Comment on above: Performed By: #### G FR #### [place] [address] #### CBC, ADIFF, BMP, ANEU #### [address] [address] Eosinophil, Absolute 0.00 10 3/mcL Normal 0.00-0.40 A [facility] ([place]) Comment on above: Performed By: #### G FR #### [place] [address] #### CBC, ADIFF, BMP, ANEU #### [address] [address] Eosinophils/100 WBC (Bld) 0.6 % Normal 0.0-7.0 [facility] ([place]) Comment on above: Performed By: #### G FR #### [place] [address] #### CBC, ADIFF, BMP, ANEU #### [address] [address] Lymphocyte, Absolute 2.10 10 3/mcL Normal 0.77-3.85 A [facility] ([place]) Comment on above: Performed By: #### G FR #### [place] [address] #### CBC, ADIFF, BMP, ANEU #### [address] [address] Lymphocytes/100 WBC (Bld) 28.2 % Normal 10.0-50.0 [facility] ([place]) Comment on above: Performed By: #### G FR #### [place] [address] #### CBC, ADIFF, BMP, ANEU #### [address] [address] Monocyte, Absolute 0.70 10 3/mcL Normal 0.15-1.00 Critical [facility] Comment on above: Performed By: #### G FR #### [place] [address] #### CBC, ADIFF, BMP, ANEU #### [address] [address] Monocytes/100 WBC (Bld) 9.5 % Normal 1.7-13.0 [facility]ly [facility] ([place]) Comment on above: Performed By: #### G FR #### [place] [address] #### CBC, ADIFF, BMP, ANEU #### [address] [address] Neutrophils/100 WBC (Bld) 60.8 % Normal 37.0-80.0 [facility] ([place]) Comment on above: Performed By: #### G FR #### [place] [address] #### CBC, ADIFF, BMP, ANEU #### [address] [address] .GFRon 06-20-2020 GFR 94 ml/min/1.73sqm Normal [facility] ([place]) Comment on above: Result Comment: GFR Population mean for , Non- Americans Ages 20-29 = 116 mL/min/1.73 sq.m. Ages 30-39 = 107 mL/min/1.73 sq.m. Ages 40-49 = 99 mL/min/1.73 sq.m. Ages 50-59 = 93 mL/min/1.73 sq.m. Ages 60-69 = 85 mL/min/1.73 sq.m. Ages 70+ = 75 mL/min/1.73 sq.m. Chronic Kidney Disease: Less than 60 mL/min/1.73 square meters End Stage Renal Disease: Less than 15 mL/min/1.73 square meters Performed By: #### G FR #### [place] [address] #### CBC, ADIFF, BMP, ANEU #### [address] [address] GFR Non- 78 ml/min/1.73sqm Normal [facility] ([place]) Comment on above: Result Comment: GFR Population mean for , Non- Americans Ages 20-29 = 116 mL/min/1.73 sq.m. Ages 30-39 = 107 mL/min/1.73 sq.m. Ages 40-49 = 99 mL/min/1.73 sq.m. Ages 50-59 = 93 mL/min/1.73 sq.m. Ages 60-69 = 85 mL/min/1.73 sq.m. Ages 70+ = 75 mL/min/1.73 sq.m. Chronic Kidney Disease: Less than 60 mL/min/1.73 square meters End Stage Renal Disease: Less than 15 mL/min/1.73 square meters Performed By: #### G FR #### [place] [address] #### CBC, ADIFF, BMP, ANEU #### [address] [address] .NEUABSon 06-20-2020 Neutrophil, Absolute 4.40 10 3/mcL Normal 2.85-6.16 A [facility] ([place]) Comment on above: Performed By: #### G FR #### [address] [address] #### CBC, ADIFF, BMP, ANEU #### [address] [address] BMPon 06-20-2020 BUN/Creatinine Ratio 23 ratio Normal 7-27 [facility] ([place]) Comment on above: Performed By: #### G FR #### [place] [address] #### CBC, ADIFF, BMP, ANEU #### [address] [address] Calcium [Mass/Vol] 8.6 mg/dL Normal 8.4-10.2 [facility] ([place]) Comment on above: Performed By: #### G FR #### [place] [address] #### CBC, ADIFF, BMP, ANEU #### [address] [address] Chloride [Moles/Vol] 104 mmol/L Normal 98-107 [facility] ([place]) Comment on above: Performed By: #### G FR #### [place] [address] #### CBC, ADIFF, BMP, ANEU #### [address] [address] CO2 [Moles/Vol] 25 mmol/L Normal 23-31 [facility] ([place]) Comment on above: Performed By: #### G FR #### [place] [id number] #### CBC, ADIFF, BMP, ANEU #### [address] [address] Creatinine [Mass/Vol] 0.73 mg/dL Normal 0.55-1.02 [facility] ([place]) Comment on above: Performed By: #### G FR #### [place] [id number] #### CBC, ADIFF, BMP, ANEU #### [address] [address] Electrolyte Balance 13.0 mEq/L Normal [facility] ([place]) Comment on above: Performed By: #### G FR #### [address] [address] #### CBC, ADIFF, BMP, ANEU #### [address] [address] Glucose [Mass/Vol] 101 mg/dL Normal 83-110 [facility] ([place]) Comment on above: Performed By: #### G FR #### [place] [address] #### CBC, ADIFF, BMP, ANEU #### [address] [address] Potassium [Moles/Vol] 3.9 mmol/L Normal 3.5-5.1 [facility] [place] Comment on above: Performed By: #### G FR #### [address] [address] #### CBC, ADIFF, BMP, ANEU #### [address] [address] Sodium [Moles/Vol] 142 mmol/L Normal 136-145 [facility] ([place]) Comment on above: Performed By: #### G FR #### [place] [address] #### CBC, ADIFF, BMP, ANEU #### [address] [address] Urea nitrogen [Mass/Vol] 17 mg/dL Normal 7-18 [facility] ([place]) Comment on above: Performed By: #### G FR #### [address] [address] #### CBC, ADIFF, BMP, ANEU #### [address] [address] CBCon 06-20-2020 Erythrocyte distribution width (RBC) [Ratio] 12.9 % Normal 11.5-14.5 [facility] ([place]) Comment on above: Performed By: #### G FR #### [place] [address] #### CBC, ADIFF, BMP, ANEU #### [address] [address] Hematocrit (Bld) [Volume fraction] 42.6 % Normal 37.0-47.0 [facility] ([place]) Comment on above: Performed By: #### G FR #### [place] [address] #### CBC, ADIFF, BMP, ANEU #### [address] [address] Hgb 14.7 G/dL Normal 12.0-16.0 [facility] ([place]) Comment on above: Performed By: #### G FR #### [place] [address] #### CBC, ADIFF, BMP, ANEU #### [address] [address] MCH (RBC) [Entitic mass] 33.1 pg High 27.0-31.2 [facility] ([place]) Comment on above: Performed By: #### G FR #### [place] [address] #### CBC, ADIFF, BMP, ANEU #### [address] [address] MCHC 34.5 G/dL Normal 33.0-37.0 [facility] ([place]) Comment on above: Performed By: #### G FR #### [place] [address] #### CBC, ADIFF, BMP, ANEU #### [address] [address] MCV (RBC) [Entitic vol] 95.9 fL High 80.0-94.0 [facility] ([place]) Comment on above: Performed By: #### G FR #### [place] [address] #### CBC, ADIFF, BMP, ANEU #### [address] [address] Platelet 244 10 3/mcL Normal 130-400 [facility] [place] Comment on above: Performed By: #### G FR #### [place] [address] #### CBC, ADIFF, BMP, ANEU #### [address] [address] Platelet mean volume (Bld) [Entitic vol] 9.6 fL Normal 7.4-10.4 [facility] [place]) Comment on above: Performed By: #### G FR #### [place] [address] #### CBC, ADIFF, BMP, ANEU #### [address] [address] RBC 4.44 10 6/mcL Normal 4.20-5.40 [facility] ([place]) Comment on above: Performed By: #### G FR #### [place] [address] #### CBC, ADIFF, BMP, ANEU #### [address] [address] WBC 7.30 10 3/mcL Normal 4.60-10.80 [facility] ([place]) Comment on above: Performed By: #### G FR #### [place] [address] #### CBC, ADIFF, BMP, ANEU #### [address] [address] US TRANSVAGINAL NON OBon US TRANSVAGINAL NON OB ORIGINAL US TRANSVAGINAL NON OB CLINICAL STATEMENT: POST MENOPAUSAL BLEEDING COMPARISON: None FINDINGS:A transabdominal and transvaginal ultrasound of the pelvis was performed. The uterus is normal in size measuring 4.9 x 1.8 x 3.0 cm. The endometrium is thin measuring 2 mm. A small amount of fluid is seen within the endometrial canal. Calcifications are seen within the fundus of the uterus. The RIGHT ovary is normal in size and echogenicity measuring 1.5 x 1.1 x 1.2 cm. There is normal color Doppler and spectral waveforms to the RIGHT ovary. The LEFT ovary is reportedly surgically absent. No free fluid or adnexal mass was seen. IMPRESSION:A small amount of fluid is seen within the endometrial canal. However, the endometrium is thin measuring 2 mm. Interpreted By: Mary Kaufman MD Preliminary Report By: Mary Kaufman MD Electronically Signed By: Mary Kaufman MD Dictated Date: 04/23/2020 9:09:55 AM Prelim Date: 04/23/2020 9:09:55 AM Sign Date: 04/23/2020 9:12:24 AM Ordering Provider:Kaela Piña [facility] ([place]) Vital Signs Date Time Vital Sign Value Performing Clinician Faci lity 10-25-2024 14:08-0400 Diastolic blood pressure 60 mm[Hg] Itzel Bridenthal [employer]ER Work Phone: [facility] [employer] 10-25-2024 14:08-0400 Heart rate 73 /min Itzel Bridenthal [employer] ACTIVITIES ADVISER Work Phone: [facility] [employer] 10-25-2024 14:08-0400 Systolic blood pressure 107 mm[Hg] Itzel Bridenth al [employer] - WOM[employer]S ACTIVITIES ADVISER Work Phone: [facility] [employer] 10-25-2024 13:28-0400 Body mass index (BMI) [Ratio] 24.34 kg/m2 Itzel Bridenthal [employer] WOMEN[employer]S ACTIVITIES ADVISER Work Phone: [facility] [employer] 10-25-2024 13:28-0400 Body temperature 98.6 [degF] Itzel Bridenthal [employer] - WOM[employer]S ACTIVITIES ADVISER Work Phone: [facility] [employer] 10-25-2024 13:28-0400 Body weight 62.32 kg Itzel Bridenthal [employer] WOM[employer]S ACTIVITIES ADVISER Work Phone: [facility] [employer] 10-25-2024 13:28-0400 Respiratory rate 20 /min Itzel Bridenthal [employer] WOM[employer]S ACTIVITIES ADVISER Work Phone: [facility] [employer] 10-25-2024 13:28-0400 SaO2% (BldA) [Mass fraction] 95 % Itzel Hwang [employer]OM[employer] ACTIVITIES ADVISER Work Phone: [facility] [employer] 07-04-2024 10:19-0400 Body height 160 cm Moy De Dios MD Work Phone: [facility] 07-04-2024 10:19-0400 Body mass index (BMI) [Ratio] 26 kg/m2 Moy De Dios MD Work Phone: [facility] 07-04-2024 10:19-0400 Body weight 66.59 kg Moy De Dios MD Work Phone: [facility] [employer] 07-04-2024 10:19-0400 Diastolic blood pressure 69 mm[Hg] Moy De Dios MD Work Phone: [facility] [employer] 07-04-2024 10:19-0400 Heart rate 75 /min Moy De Dios MD Work Phone: [facility] [employer] 07-04-2024 10:19-0400 SaO2% (BldA) [Mass fraction] 94 % Moy De Dios MD Work Phone: [facility] [employer] 07-04-2024 10:19-0400 Systolic blood pressure 120 mm[Hg] Moy Espinoza Work Phone: [facility] [employer] 01-11-2024 09:21-0500 Body height 160 cm Moy De Dios MD Work Phone: [facility] [employer] 01-11-2024 09:21-0500 Body mass index (BMI) [Ratio] 25.12 kg/m2 Moy De Dios MD Work Phone: [facility] [employer] 01-11-2024 09:21-0500 Body weight 64.32 kg Moy De Dios MD Work Phone: [facility] [employer] 01-11-2024 09:21-0500 Diastolic blood pressure 69 mm[Hg] Moy De Dios MD Work Phone: [facility] [employer] 01-11-2024 09:21-0500 Heart rate 75 /min Moy De Dios MD Work Phone: [facility] 01-11-2024 09:21-0500 SaO2% (BldA) [Mass fraction] 96 % Moy De Dios MD Work Phone: [facility] 01-11-2024 09:21-0500 Systolic blood pressure 111 mm[Hg] Moy Espinoza Work Phone: [facility] [employer] 07-13-2023 08:53-0400 Body height 160 cm Moy De Dios MD Work Phone: [facility] [employer] 07-13-2023 08:53-0400 Body mass index (BMI) [Ratio] 25.05 kg/m2 Moy De Dios MD Work Phone: [facility] 07-13-2023 08:53-0400 Body weight 64.14 kg Moy De Dios MD Work Phone: [facility] [employer] 07-13-2023 08:53-0400 Diastolic blood pressure 73 mm[Hg] Moy De Dios MD Work Phone: [facility] [employer] 07-13-2023 08:53-0400 Heart rate 80 /min Moy De Dios MD Work Phone: [facility] 07-13-2023 08:53-0400 SaO2% (BldA) [Mass fraction] 97 % Moy De Dios MD Work Phone: [facility] 07-13-2023 08:53-0400 Systolic blood pressure 133 mm[Hg] Moy Espinoza Work Phone: [facility] [employer] 01-05-2023 11:37-0500 Diastolic blood pressure 75 mm[Hg] Moy De Dios MD Work Phone: [facility] 01-05-2023 11:37-0500 Heart rate 75 /min Moy De Dios MD Work Phone: [facility] 01-05-2023 11:37-0500 Systolic blood pressure 137 mm[Hg] Moy Espinoza Work Phone: [facility] [employer] 01-05-2023 10:58-0500 Body height 160 cm Moy De Dios MD Work Phone: [facility] [employer] 01-05-2023 10:58-0500 Body mass index (BMI) [Ratio] 25.65 kg/m2 Moy De Dios MD Work Phone: [facility] 01-05-2023 10:58-0500 Body weight 65.68 kg Moy De Dios MD Work Phone: [facility] [employer] 01-05-2023 10:58-0500 SaO2% (BldA) [Mass fraction] 95 % Moy De Dios MD Work Phone: [facility] 12-09-2022 14:40-0400 Diastolic blood pressure 71 mm[Hg] Moy De Dios MD Work Phone: [facility] 12-09-2022 14:40-0400 Heart rate 82 /min Moy De Dios MD Work Phone: [facility] 12-09-2022 14:40-0400 Systolic blood pressure 126 mm[Hg] Moy Espinoza Work Phone: [facility] 12-09-2022 14:11-0400 Body height 160 cm Moy De Dios MD Work Phone: [facility] 12-09-2022 14:11-0400 Body mass index (BMI) [Ratio] 25.72 kg/m2 Moy De Dios MD Work Phone: [facility] 12-09-2022 14:11-0400 Body weight 65.86 kg Moy De Dios MD Work Phone: [facility] [employer] 12-09-2022 14:11-0400 SaO2% (BldA) [Mass fraction] 96 % Moy De Dios MD Work Phone: [facility] [employer] 11-20-2022 14:33-0400 Diastolic blood pressure 60 mm[Hg] Darrell Oskvarek MD Work Phone: [facility] 11-20-2022 14:33-0400 Heart rate 60 /min Darrell Tillman MD Work Phone: [facility] 11-20-2022 14:33-0400 Respiratory rate 18 /min Darrell Tillman MD Work Phone: [facility] 11-20-2022 14:33-0400 SaO2% (BldA) [Mass fraction] 98 % Darrell Tillman MD Work Phone: [facility] 11-20-2022 14:33-0400 Systolic blood pressure 143 mm[Hg] Darrell macedo MD Work Phone: [facility] 11-20-2022 09:04-0400 Body temperature 97.9 [degF] Darrell Tillman MD Work Phone: [facility] Encounters Encounter Date Encounter Type Care Provider Facility Start: 10-25-2024 End: 10-25-2024 Office outpatient visit 15 minutes Itzel Hwang [employer]ER Work Phone: [facility] Comment on above: Vaginal irritation ( Primary Dx) Start: 10-25-2024 End: 10-25-[address] [facility] Start: 10-19-2024 End: 10-20-2024 ambulatory Ella Farmer RN [facility] Clinical Communication Start: 10-19-2024 End: 10-20-2024 Patient encounter procedure Ella Farmer RN [facility] Clinical Communication Start: 07-04-2024 End: 07-04-2024 Office outpatient visit 15 minutes Moy De Dios MD Work Phone: [facility] Comment on above: Mild intermittent as thma without complication (Primary Dx); Pulmonary fibrosis, unspecified (HCC) Start: 07-04-2024 End: 07-04-[address] [facility] Start: 01-12-2024 End: 01-12-2024 Telephone encounter Moy De Dios MD Work Phone: [facility] Comment on above: Results Start: 01-11-2024 End: 01-11-2024 Patient encounter procedure Moy De Dios MD Work Phone: [facility] Comment on above: Medicare annual well ness visit, subsequent (Primary Dx); Mild intermittent asthma without complication; Screening for diabetes mellitus; Screening for ischemic heart disease; Refused influenza vaccine Start: 01-11-2024 End: 01-11-[address] [facility] Start: 01-11-2024 End: 01-11-2024 Encounter for general adult medical examination without abnormal findings [facility] Start: 11-13-2023 End: 11-13-2023 ambulatory Moy De Dios Facility:[facility] Start: 07-13-2023 End: 07-13-2023 Office outpatient visit 15 minutes Moy De Dios MD Work Phone: [facility] Comment on above: Mild intermittent as thma without complication (Primary Dx); Solitary pulmonary nodule Start: 05-13-2023 End: 05-13-2023 ambulatory [facility] Work Phone: Start: 05-13-2023 End: 05-13-2023 Patient encounter procedure [facility]-Cat Scan, [facility] Work Phone: Start: 05-13-2023 End: 05-13-2023 ambulatory Josie Honeycutt Facility:[facility] Start: 01-05-2023 End: 01-05-2023 Patient encounter procedure Moy De Dios MD Work Phone: [facility] Comment on above: Medicare annual well ness visit, initial (Primary Dx); Elevated BP without diagnosis of hypertension; Screening for diabetes mellitus; Screening for ischemic heart disease Start: 12-09-2022 End: 12-09-2022 Office outpatient new 20 minutes Moy De Dios MD Work Phone: [facility] Comment on above: Solitary pulmonary n odule (Primary Dx); Dizziness; Elevated BP without diagnosis of hypertension Start: 11-25-2022 Telephone encounter Deivaugustin Mcqueen [facility] Comment on above: Care Coordination (E d Nuance- Lung Nodule ) Start: 11-20-2022 End: 11-20-2022 Emergency department patient visit Darrell Tillman MD Work Phone: [facility] ED Comment on above: SOB (shortness of br eath) (Primary Dx); Palpitations; Lung nodule seen on imaging study Start: 11-13-2022 Transcribe Orders Darryn Sneed MD Work Phone: [facility] Comment on above: Palpitations (Primar y Dx) Start: 03-19-2022 Transcribe Orders Darryn Sneed MD Work Phone: [facility] Laboratory Comment on above: COVID-19 (Primary Dx ); Ventricular premature depolarization Start: 05-14-2021 End: 05-14-2021 Subsequent hospital visit by physician Melany King MD Work Phone: [facility] Radiology Start: 12-19-2020 End: 12-19-2020 Subsequent hospital visit by physician Melany King MD Work Phone: [facility] EKG Comment on above: Arrived Start: 11-25-2020 End: 11-25-2020 Subsequent hospital visit by physician Rodriguez Franco MD Work Phone: [facility] Radiology Procedures Date Procedure Procedure Detail Performing Clinician Start: 10-25-2024 Urnls dip stick/tabl et rgnt non-auto w/o micrscp Itzel Hwang [employer]IVITIES ADVISER Work Phone: Start: 07-04-2024 Adult depression scr eening assessment Moy De Dios MD Work Phone: Start: 01-11-2024 Adult depression scr eening assessment Moy De Dios MD Work Phone: Start: 07-12-2023 Adult depression scr eening assessment Moy De Dios MD Work Phone: Start: 05-13-2023 CT of chest without contrast Start: 01-05-2023 Adult depression scr eening assessment Moy De Dios MD Work Phone: Start: 11-20-2022 Ct angiography chest w/contrast/noncontrast Es Villanuevalin PA-C Work Phone: Start: 11-20-2022 Radiologic exam ches t single view Es Wall PA-C Work Phone: Start: 11-20-2022 Basic metabolic pane l calcium total Es Bashir PA-C Work Phone: Start: 11-20-2022 Ecg routine ecg w/le ast 12 lds trcg only w/o i&r Darrell Tillman MD Work Phone: Start: 03-19-2022 Comprehensive metabo lic panel Darryn Sneed MD Work Phone: Start: 03-19-2022 Lipid panel Darryn tijerina MD Work Phone: Start: 11-25-2020 Radiologic exam ches t 2 views Rodriguez Franco MD Work Phone: Plan of Treatment Date Care Activity Detail Author Start: 07-04-2025 Depression Screening Depression Scre ening [facility] Start: 02-09-2025 Medicare Annual Well ness (AWV) Medicare Annual Wellness (AWV) [facility] Start: 01-16-2025 End: 01-16-2025 Patient encounter procedure 01/16/2025 10:30 AM EST Office Visit [facility] [address] [facility] [address] [place], [place] [id number] Moy De Dios MD [address] [place] [id number] [facility] Start: 01-10-2025 COVID-19 Vaccine ( season) COVID-19 Vaccine ( season) [facility] Comment on above: Postponed from 10/30 (Patient Refused) Start: 01-10-2025 Depression Screening Depression Scre ening [facility] Start: 01-10-2025 DTaP/Tdap/Td Vaccine s (1 - Tdap) DTaP/Tdap/Td Vaccines (1 - Tdap) [facility] Comment on above: Postponed from 04/10 (Patient Refused) Start: 01-10-2025 Hepatitis C screening Hepatitis C Sc reening [facility] Comment on above: Postponed from 04/10 (Patient Refused) Start: 01-10-2025 Pneumococcal Vaccine : 50+ Years (1 of 2 - PCV) Pneumococcal Vaccine: 50+ Years (1 of 2 - PCV) [facility] Comment on above: Postponed from 04/10 (Patient Refused) Start: 01-10-2025 Pneumococcal Vaccine : 65+ Years (1 of 2 - PCV) Pneumococcal Vaccine: 65+ Years (1 of 2 - PCV) [facility] Comment on above: Postponed from 04/10 (Patient Refused) Start: 01-10-2025 RSV Immunization for Adults (1 - 1-dose 75+ series) RSV Immunization for Adults (1 - 1-dose 75+ series) [facility] Comment on above: Postponed from 04/10 (Patient Refused) Start: 01-10-2025 Zoster Vaccines (1 of 2) Zoster Vacc nina (1 of 2) [facility] Comment on above: Postponed from 04/10 (Patient Refused) Start: 10-30-2024 Influenza vaccination S [facility] Start: 10-25-2024 End: 10-25-2025 Fungus identified in Unspecified specimen by Culture Fungal Culture Microbiology Routine Vaginal irritation Expected: 10/25/2024 (Approximate), Expires: 10/25/2025 [facility] Work Phone: Comment on above: Expected: 10/25/2024 (Approximate), Expires: 10/25/2025 Start: 10-25-2024 End: 10-25-2024 Patient encounter procedure 10/25/2024 1:40 PM EDT Office Visit [address] [phone] Itzel Hwang, [employer]OM[employer]IVITIES ADVISER [address] [place] [address] [facility] Start: 08-28-2024 Influenza vaccination Influenza Vacc ine (#1) [facility] Comment on above: Postponed from 10/30 (Patient Refused) Start: 07-11-2024 Depression Screening Depression Scre ening [facility] Start: 07-04-2024 End: 07-04-2024 Patient encounter procedure 07/04/2024 10:30 AM EDT Office Visit [address] [id number] Moy De Dios MD [address] [place] [id number] [facility] Start: 02-05-2024 Medicare Annual Well ness (AWV) Medicare Annual Wellness (AWV) [facility] Start: 01-11-2024 End: 01-10-2025 Comprehensive metabolic 1998 panel - Serum or Plasma Comprehensive metabolic panel Lab Routine Screening for diabetes mellitus Expected: 01/11/2024 (Approximate), Expires: 01/10/2025 [facility] Work Phone: Comment on above: Expected: 01/11/2024 (Approximate), Expires: 01/10/2025 Start: 01-11-2024 End: 01-10-2025 Lipid 1996 panel - Serum or Plasma Lipid panel Lab Routine Screening for ischemic heart disease Expected: 01/11/2024 (Approximate), Expires: 01/10/2025 [facility] Comment on above: Expected: 01/11/2024 (Approximate), Expires: 01/10/2025 Start: 01-11-2024 End: 01-11-2024 Patient encounter procedure 01/11/2024 9:30 AM EST Office Visit [facility] [address] [place] [address] Moy De Dios MD [address] [place] [address], [place] [address] [facility] Start: 01-06-2024 Depression Screening Depression Scre ening [facility] Start: 12-09-2023 COVID-19 Vaccine (#1) COVID-19 Vacci ne (#1) [facility] Comment on above: Postponed from 10/08 (Patient Refused) Start: 12-09-2023 COVID-19 Vaccine (2022- season) COVID-19 Vaccine ( - 2022- season) [facility] Comment on above: Postponed from 10/30 (Patient Refused) Start: 12-09-2023 DTaP/Tdap/Td Vaccine s (1 - Tdap) DTaP/Tdap/Td Vaccines (1 - Tdap) [facility] Comment on above: Postponed from 04/10 (Patient Refused) Start: 12-09-2023 Hepatitis C screening Hepatitis C Sc reening [facility] Comment on above: Postponed from 04/10 (Patient Refused) Start: 12-09-2023 Pneumococcal Vaccine : 65+ Years (1 - PCV) Pneumococcal Vaccine: 65+ Years (1 - PCV) [facility] Comment on above: Postponed from 04/10 (Patient Refused) Start: 12-09-2023 Pneumococcal Vaccine : 65+ Years (1 of 2 - PCV) Pneumococcal Vaccine: 65+ Years (1 of 2 - PCV) [facility] Comment on above: Postponed from 04/10 (Patient Refused) Start: 12-09-2023 Screening for osteoporosis Bone Density Scan [facility] Comment on above: Postponed from 04/10 (Patient Refused) Start: 12-09-2023 Zoster Vaccines (1 of 2) Zoster Vacc nina (1 of 2) [facility] Comment on above: Postponed from 04/10 (Patient Refused) Start: 10-31-2023 Influenza vaccination Influenz a Vaccine (Season Ended) [facility] Start: 08-29-2023 Influenza vaccination Influenza Vacc ine (#1) [facility] Comment on above: Postponed from 10/30 (Patient Refused) Start: 07-13-2023 End: 07-13-2023 Patient encounter procedure 07/13/2023 9:00 AM EDT Office Visit [facility] [address] [place] [address] Moy De Dios MD [address] [place] [address] [place] [id number] [facility] Start: 01-05-2023 End: 01-06-2024 Comprehensive metabolic 1998 panel - Serum or Plasma Comprehensive metabolic panel Lab Routine Screening for diabetes mellitus Expected: 01/05/2023 (Approximate), Expires: 01/06/2024 [facility] Comment on above: Expected: 01/05/2023 (Approximate), Expires: 01/06/2024 Start: 01-05-2023 End: 01-06-2024 Lipid 1996 panel - Serum or Plasma Lipid panel Lab Routine Screening for ischemic heart disease Expected: 01/05/2023 (Approximate), Expires: 01/06/2024 [facility] Work Phone: Comment on above: Expected: 01/05/2023 (Approximate), Expires: 01/06/2024 Start: 01-05-2023 End: 01-05-2023 Patient encounter procedure 01/05/2023 11:00 AM EST Office Visit [facility] [address] [place] [address] [place] [address] Moy De Dios MD [address] [place] [address] [place] [address] [facility] Start: 12-09-2022 End: 12-09-2022 Patient encounter procedure 12/09/2022 2:30 PM EDT Office Visit [facility] [address] [place] [address] [place] [address] Moy De Dios MD [address] [place] [address] [place] [address] [facility] Start: 10-30-2022 Influenza vaccination S [facility] Start: 03-09-2021 Annual Wellness Visi t (AWV) Annual Wellness Visit (AWV) [facility] Start: 12-19-2020 End: 12-19-2020 Patient encounter procedure 12/19/2020 Appointment EKMelany Livingston MD [address] [place], [place] [address] [facility] Start: 10-30-2020 Influenza vaccination Flu vaccine (# 1) [facility] Start: 08-15-2020 Screening for malign ant neoplasm of breast Breast cancer screen [facility] Work Phone: Start: 2011 Pneumococcal 65+ yea rs Vaccine (1 of 1 - PPSV23) Pneumococcal 65+ years Vaccine (1 of 1 - PPSV23) [facility] Start: 2011 Pneumococcal Vaccine : 65+ Years (1 - PCV) Pneumococcal Vaccine: 65+ Years (1 - PCV) [facility] Start: 2006 RSV Immunization age d 60 or older (1 - 1-dose 60+ series) RSV Immunization aged 60 or older (1 - 1-dose 60+ series) [facility] Start: 1996 Shingles Vaccine (1 of 2) Shingles Vaccine (1 of 2) [facility] Start: 1996 Zoster Vaccines (1 of 2) Zoster Vacc nina (1 of 2) [facility] Start: 1991 Screening for malign ant neoplasm of colon [facility] Start: 1986 Lipid panel Lipid screen [facility] Start: 1965 DTaP/Tdap/Td vaccine (1 - Tdap) DTaP/Tdap/Td vaccine (1 - Tdap) [facility] Start: 1965 DTaP/Tdap/Td Vaccine s (1 - Tdap) DTaP/Tdap/Td Vaccines (1 - Tdap) [facility] Start: 1964 Hepatitis C screening Hepatitis C Sc reening [facility] Start: 1958 COVID-19 Vaccine (1) COVID-19 Vaccin e (1) [facility] Work Phone: Start: 1958 Depression Screen Depression Screen [facility] Start: 1958 Depression Screening Depression Scre ening [facility] Start: 1951 COVID-19 Vaccine (1) COVID-19 Vaccin e (1) [facility] Start: 1946 COVID-19 Vaccine (#1) COVID-19 Vacci ne (#1) [facility] Start: 1946 Hepatitis B Vaccines (1 of 3 - 3-dose series) Hepatitis B Vaccines (1 of 3 - 3-dose series) [facility] Start: 1946 Hepatitis C screening Hepatitis C sc reen [facility] Start: 1946 Medicare Annual Well ness (AWV) Medicare Annual Wellness (AWV) [facility] Start: 1946 Screening for osteoporosis Bone Density Scan [facility] End: 05-14-2021 XR KNEE RIGHT (3 VIEWS) [facility] Work Phone: Comment on above: Once for 1 Occurrenc es starting 05/14/2021 until 05/14/2021 Payers Date Payer Category Payer Self-pay 2011 Medicare [id number] 2011 Medicare [id number] Unknown [id number] Unknown [id number] Social History Date Type Detail Facility [facility] Work Phone: Start: 1945 Sex Assigned At Not on file S [employer] Work Phone: Tobacco smoking stat [facility] Tobacco smoking consumption unknown [facility] Start: 03-09-2022 End: 11-20-2022 Exposure to SARS-CoV-2 (event) Not sure [facility] Start: 12-09-2022 End: 07-04-2024 Gender identity Not on file [facility] Start: 12-09-2022 End: 07-04-2024 History of Social function [facility] Start: 12-08-2022 End: 10-25-2024 Tobacco smoking status NHIS Ex-smoker [facility] Start: 03-01-1969 End: 03-01-1983 History of tobacco use Current smoker [facility] Start: 03-01-1969 End: 03-01-1983 History of tobacco use Cigarette Smoker [facility] Start: 12-08-2022 End: 10-25-2024 Tobacco use and exposure Smokeless tobacco non-user [facility] Start: 12-09-2022 End: 10-25-2024 Alcohol intake Ex-drinker (finding) [facility] Frequency of Alcohol Consumption Not on file [facility] (I/We) worried whekrystian er (my/our) food would run out before (I/we) got money to buy more. Never true [facility] In the past 12 month s, was there a time when you were not able to pay the mortgage or rent on time? No [facility] Start: 1945 Sex Assigned At Female W [facility] Are you now , , , , never or living with a partner? Living with partner [facility] Do you feel stress - tense, restless, nervous, or anxious, or unable to sleep at night because your mind is troubled all the time - these days [OSQ] Not at all [facility] Start: 09-29-2021 Sex Female (finding) [facility] Are you now , , , , never or living with a partner? [facility] How hard is it for y ou to pay for the very basics like food, housing, medical care, and heating Not very hard [facility] How often do you nee d to have someone help you when you read instructions, pamphlets, or other written material from your doctor or pharmacy [SILS] Never [facility] Clinical Notes 11-20-2022 to 10-25-2024 Assessment & Plan Note - NOAH Hernandez CNP - 10/25/2024 5:11 PM EDTAssessment & Plan Note - NOAH Hernandez CNP - 10/25/2024 5:11 PM EDTDischarge Instructions Note Date & Type Note Facility 10-25-2024 Evaluation + Plan note Associ ated Problem(s): Vaginal irritation UA negative. Symptoms most likely secondary to a fungal infection. Did have some improvement with wjlf-csx-hiwsvwo antifungal. Will obtain fungal culture and send prescription for Diflucan [facility] 10-25-2024 Miscellaneous Notes Associate d Problem(s): Vaginal irritation UA negative. Symptoms most likely secondary to a fungal infection. Did have some improvement with fccg-wot-pwpvskj antifungal. Will obtain fungal culture and send prescription for Diflucan documented in this encounter [facility] 10-25-2024 History of Presen t illness Narrative Patient was identified by name and Date of . Patient identified by name and date of . Urine specimen cup labeled with patient name and date of . Urine cup and wipe given to patient. Clean catch urine collected from patient. POCT Urine ordered and signed by provider. POCT urine results entered and were sent to provider. Images from the original note were not included. 10/25/2024 Danii [place] (: 1945) is a 79 y.o. female , Established patient, here for evaluation of the following chief complaint(s): Vaginal Itching (/) ASSESSMENT/PLAN: 1. Vaginal irritation Assessment & Plan: UA negative. Symptoms most likely secondary to a fungal infection. Did have some improvement with srpj-lvk-sklgriy antifungal. Will obtain fungal culture and send prescription for Diflucan Orders: - Fungal Culture - POCT Urinalysis dipstick - fluconazole (Diflucan) 150 MG tablet; Take 1 tablet (150 mg) by mouth See administration instructions for 1 day. Take one tab now. Repeat in 3 days if symptoms persist., Starting 10/25/2024, Until Lisa 10/26/2024 at 2359, Normal Follow up if symptoms worsen or fail to improve. SUBJECTIVE/OBJECTIVE: ANTONINA [place] (: 1945) is a 79 y.o. female , Established patient, here for the evaluation of the following chief complaint(s): Vaginal Itching (/) Reports vaginal itching for about 10 days. Minimal discharge. Reports using scol-qga-sinzrma Miconazole suppositories x 3 days and topical. Was swollen and sore and was itching bad, is now better. Still slightly itching. No fever, no n/v. Swelling has much improved. Current Medications[1] Review of Systems Constitutional: Negative. Respiratory: Negative. Cardiovascular: Negative. Gastrointestinal: Negative. Genitourinary: Negative for difficulty urinating, dysuria, vaginal bleeding and vaginal discharge. Vaginal itching Vitals: 10/25/24 1328 10/25/24 1408 BP: (!) 144/59 107/60 Pulse: 67 73 Resp: 20 Temp: 37 C (98.6 F) TempSrc: Infrared SpO2: 95% Weight: 137 lb 6.4 oz (62.3 kg) Physical Exam Constitutional: Appearance: Normal appearance. Pulmonary: Effort: Pulmonary effort is normal. Genitourinary: Vagina: Erythema present. No vaginal discharge or bleeding. Cervix: Normal and dilated. Adnexa: Right adnexa normal and left adnexa normal. Comments: Labia minora slightly swollen with erythema Neurological: Mental Status: She is alert and oriented to person, place, and time. An electronic signature was used to authenticate this note. Itzel Hwang, NOAH - VIC 10/25/2024 5:13 PM [1] Current Outpatient Medications Medication Sig Dispense Refill fluconazole (Diflucan) 150 MG tablet Take 1 tablet (150 mg) by mouth See administration instructions for 1 day. Take one tab now. Repeat in 3 days if symptoms persist. 2 tablet 0 MECLIZINE HCL PO Take by mouth. Misc Natural Products (PUMPKIN SEED OIL PO) Take by mouth. Multiple Vitamin (MULTIVITAMIN ADULT PO) Take by mouth. No current facility-administered medications for this visit. documented in this encounter [facility] 10-19-2024 Telephone encount er Note S: Patient called the clinical access center with complaint of vaginal itching B: started about 10 days ago A: Pt complains of mild itching now after using miconazole suppositories for 3 days. She is also applying Miconazole cream. She said at first there was swelling and redness that are now gone. She denies discharge. R: [facility] appt 10/25 at 140 pm with Fox Hwang. Pt advised to bring photo ID, insurance card, medications with them to their visit if possible. Arrive 15 min prior to appt. Home care advice given to patient: GENITAL HYGIENE: * Keep your genital area clean. Use mild soaps, but do not use them on your vulva. Wash the vulva area only with water. Gently pat the vulva area dry after washing. * Keep your genital area dry. Wear cotton underwear or underwear with a cotton crotch. * Use unscented 100% cotton menstrual pads. * DO NOT douche. * DO NOT use feminine hygiene products or perfumed soaps. *No sexual intercourse, douches or medication intravaginally 48-72 hours before examination Covid questions: Patient advised to call the office back if within the 5 days prior to your office visit if you have symptoms of Covid/Flu or you test positive for Covid. Reason for Disposition Itching or dryness of genital area and nearing menopause or after menopause Protocols used: Vulvar [id number] [facility] 10-19-2024 Miscellaneous Notes Formattin g of this note might be different from the original. S: Patient called the clinical access center with complaint of vaginal itching B: started about 10 days ago A: Pt complains of mild itching now after using miconazole suppositories for 3 days. She is also applying Miconazole cream. She said at first there was swelling and redness that are now gone. She denies discharge. R: [facility] appt 8/27 at 140 pm with Fox Hwang. Pt advised to bring photo ID, insurance card, medications with them to their visit if possible. Arrive 15 min prior to appt. Home care advice given to patient: GENITAL HYGIENE: * Keep your genital area clean. Use mild soaps, but do not use them on your vulva. Wash the vulva area only with water. Gently pat the vulva area dry after washing. * Keep your genital area dry. Wear cotton underwear or underwear with a cotton crotch. * Use unscented 100% cotton menstrual pads. * DO NOT douche. * DO NOT use feminine hygiene products or perfumed soaps. *No sexual intercourse, douches or medication intravaginally 48-72 hours before examination Covid questions: Patient advised to call the office back if within the 5 days prior to your office visit if you have symptoms of Covid/Flu or you test positive for Covid. Reason for Disposition Itching or dryness of genital area and nearing menopause or after menopause Protocols used: Vulvar [id number] documented in this encounter [facility] 07-04-2024 Evaluation + Plan note Associ ated Problem(s): Pulmonary fibrosis, unspecified (HCC) Stable, currently on no inhalers. [facility] 07-04-2024 Evaluation + Plan note Associ ated Problem(s): Mild intermittent asthma without complication Controlled, currently on no inhalers. [facility] 07-04-2024 Miscellaneous Notes Associate d Problem(s): Pulmonary fibrosis, unspecified (HCC) Stable, currently on no inhalers. Associated Problem(s): Mild intermittent asthma without complication Controlled, currently on no inhalers. documented in this encounter [facility] 07-04-2024 History of Presen t illness Narrative Patient verified by last name and date of . Images from the original note were not included. 07/04/2024 Danii Stokes (: 1945) is a 79 y.o. female , Established patient, here for evaluation of the following chief complaint(s): Asthma and Medication Check (6 month.) ASSESSMENT/PLAN: 1. Mild intermittent asthma without complication Assessment & Plan: Controlled, currently on no inhalers. 2. Pulmonary fibrosis, unspecified (HCC) Assessment & Plan: Stable, currently on no inhalers. Follow up in about 6 months (around 01/04/2025) for AWV. SUBJECTIVE/OBJECTIVE: ANTONINA Belcher comes in today for 6-month follow-up on her asthma says she is doing well with that she has not been using any inhalers she also has pulmonary fibrosis and that seems to be stable also. She has no other complaints, see ROS. Review of Systems Constitutional: Negative for chills and fever. Respiratory: Negative for shortness of breath. Cardiovascular: Negative for chest pain and palpitations. Gastrointestinal: Negative for abdominal pain, blood in stool, constipation and diarrhea. Genitourinary: Negative for dysuria, frequency, hematuria and urgency. Neurological: Negative for weakness and numbness. Psychiatric/Behavioral: Negative for dysphoric mood. The patient is not nervous/anxious. Vitals: 07/04/24 1019 BP: 120/69 Pulse: 75 SpO2: 94% Weight: 146 lb 12.8 oz (66.6 kg) Height: 5' 3 (1.6 m) Physical [...] authenticate this note. Moy De Dios MD 07/04/2024 10:37 AM documented in this encounter [facility] 01-12-2024 Telephone encount er Note Message released to patient as written. Patient's further questions if applicable: N/A Were all questions from office addressed or relayed to the patient from encounter: Yes [facility] 01-12-2024 Miscellaneous Notes Formattin g of this note might be different from the original. Message released to patient as written. Patient's further questions if applicable: N/A Were all questions from office addressed or relayed to the patient from encounter: Yes ----- Message from Moy De Dios MD sent at 01/12/2024 7:37 AM EST ----- Blood sugar and chemistry are normal. Cholesterol is good continue low-fat low-cholesterol diet. Left a message to return call. documented in this encounter [facility] 01-12-2024 Telephone encount er Note ----- Message from Moy De Dios MD sent at 01/12/2024 7:37 AM EST ----- Blood sugar and chemistry are normal. Cholesterol is good continue low-fat low-cholesterol diet. Left a message to return call. [facility] 01-11-2024 Evaluation + Plan note Associ ated Problem(s): Mild intermittent asthma without complication Stable, currently not on any inhalers [facility] 01-11-2024 Miscellaneous Notes Associate d Problem(s): Mild intermittent asthma without complication Stable, currently not on any inhalers documented in this encounter [facility] 01-11-2024 History of Presen t illness Narrative Patient verified by last name and date of . Images from the original note were not included. [address] [address] Visit Type: Medicare Annual Wellness PCP: Moy De Dios MD Reason for Visit: Medicare Annual Wellness Visit Subsequent, Blood Work, and Health Maintenance (Pcv 20 vaccine- refuse/Hep c screening- refuse/Tdap vaccine- refuse/Shingles vaccine- refuse/Rsv vaccine- refuse/Flu vaccine- refuse/Covid vaccine- not done) Assessment and Plan Problem List Items Addressed This Visit Mild intermittent asthma without complication Stable, currently not on any inhalers Other Visit Diagnoses Medicare annual wellness visit, subsequent - Primary Screening for diabetes mellitus Relevant Orders Comprehensive metabolic panel Screening for ischemic heart disease Relevant Orders Lipid panel Refused influenza vaccine I have reviewed and reconciled the medication list with the patient today. Current Outpatient Medications Medication Sig Dispense Refill MECLIZINE HCL PO Take by mouth. Misc Natural Products (PUMPKIN SEED OIL PO) Take by mouth. Multiple Vitamin (MULTIVITAMIN ADULT PO) Take by mouth. No current facility-administered medications for this visit. There are no discontinued medications. The following health maintenance schedule was reviewed with the patient and provided in printed form in the after visit summary: Health Maintenance Topic Date Due Influenza Vaccine (1) 08/28/2024 (Originally 10/31/2023) RSV Immunization for Adults (1 - 1-dose 75+ series) 01/10/2025 (Originally 2021) DTaP/Tdap/Td Vaccines (1 - Tdap) 01/10/2025 (Originally 1965) Pneumococcal Vaccine: 65+ Years (1 of 2 - PCV) 01/10/2025 (Originally 1952) Zoster Vaccines (1 of 2) 01/10/2025 (Originally 1996) Hepatitis C Screening 01/10/2025 (Originally 1964) COVID-19 Vaccine ( - 2023- season) 2025 (Originally 10/31/2023) Depression Screening 07/11/2024 Medicare Annual Wellness (AWV) 02/09/2025 Bone Density Scan Completed RSV Immunization under 20 Months Aged Out HIB Vaccines Aged Out Hepatitis B Vaccines Aged Out IPV Vaccines Aged Out Hepatitis A Vaccines Aged Out Meningococcal Vaccine Aged Out Rotavirus Vaccines Aged Out HPV Vaccines Aged Out Orders Placed This Encounter Procedures Comprehensive metabolic panel Standing Status: Future Number of Occurrences: 1 Standing Expiration Date: 01/10/2025 Lipid panel Standing Status: Future Number of Occurrences: 1 Standing Expiration Date: 01/10/2025 Follow up in about 6 months (around 07/10/2024). Subjective HPI Danii comes in today for an annual Medicare well visit, she needs follow-up on her asthma which is stable she currently has no inhalers. She denies any other complaints at this time, see ROS. List of current healthcare providers: Patient Care Team: Moy De Dios MD as PCP - General (Family Medicine) Health Risk Assessment: General: General In general, how would you say your health is?: Very good In the past 7 days, have you experienced any of the following: New or Increased Pain, New or Increased Fatigue, Loneliness, Social Isolation, Stress or Anger?: No Do you get the social and emotional suppport you need?: Yes Health Habits/Nutrition: Health Habits / Nutrition On average, how many days per week do you engage in moderate to strenous exercise (like a brisk walk)?: 6 days On average, how man minutes do you engage in exercise at this level?: 30 min Have you lost any weight without trying in the past 3 months? : No Have you seen the dentist within the past year?: (!) No Recommend dental appt Hearing/ Vision: Hearing / Vision Do you or your family notice any trouble with your hearing that hasn't been managed with hearing aids?: No Do you have difficulty driving, watching TV, or doing any of your daily activities because of your eyesight?: No Have you had an eye exam within the past year?: Yes No results found. Safety: Safety Do you have a working smoke detector?: Yes Do you have any tripping hazards - loose or unsecured carpets or rugs?: (!) Yes Do you have any tripping hazards - clutter in doorways, halls, or stairs?: No Do you have either shower bars, grab bars, non-slip mats or non-slip surfaces in your shower or bathtub? : Yes Do all your stairways have a railing or banister? : Yes Do you fasten your seatbelt when you are in a car?: Yes Interventions: ADL: ADL In the past 7 days, did [...] preparation, transportation, or taking medications? : No Living Will: Living Will Do you have a living will?: Yes Cognitive: Cognitive Screening: Mini-Cog Clock Drawing Test (CDT): 2 Words Recalled: 3 Total Score: 5 Total Score Interpretation: Normal Mini-Cog Fall Risk: Fall Risk One or more falls in the last year:: No Advised to use a cane or walker to get around safely:: No Feels unsteady when walking:: No Steadies self on furniture while walking at home:: No Worried about falling:: No Depression Screening: Over the past 2 weeks, how often have you been bothered by any of the following problems? Little interest or pleasure in doing things: Not at all Feeling down, depressed, or hopeless: Not at all Patient Health Questionnaire-2 Score: 0 Interventions: Tobacco Use: Social History Tobacco Use Smoking Status Former Current packs/day: 0.00 Average packs/day: 2.0 packs/day for 14.0 years (28.0 ttl pk-yrs) Types: Cigarettes Start date: 1969 Quit date: 1983 Years since quittin.8 Smokeless Tobacco Never Alcohol Use: Audit Alcohol Screening Q2: How many drinks containing alcohol do you have on a typical day when you are drinking?: Patient does not drink Review of Systems Constitutional: Negative for chills and fever. Respiratory: Negative for shortness of breath. Cardiovascular: Negative for chest pain and palpitations. Gastrointestinal: Negative for abdominal pain, blood in stool, constipation and diarrhea. Genitourinary: Negative for dysuria, frequency, hematuria and urgency. Neurological: Negative for weakness and numbness. Psychiatric/Behavioral: Negative for dysphoric mood. The patient is not nervous/anxious. There is no immunization history on file for this patient. Allergies Allergen Reactions Lidocaine Other reaction(s): Unknown Outpatient Medications Prior to Visit Medication Sig Dispense Refill MECLIZINE HCL PO Take by mouth. Misc Natural Products (PUMPKIN SEED OIL PO) Take by mouth. Multiple Vitamin (MULTIVITAMIN ADULT PO) Take by mouth. No facility-administered medications prior to visit. History reviewed. No pertinent past medical history. Social History Socioeconomic History Marital status: Tobacco Use Smoking status: Former Current packs/day: 0.00 Average packs/day: 2.0 packs/day for 14.0 years (28.0 ttl pk-yrs) Types: Cigarettes Start date: 1969 Quit date: 1983 Years since quittin.8 Smokeless tobacco: Never Vaping Use Vaping status: Never Used Substance and Sexual Activity Alcohol use: Not Currently Drug use: Never Sexual activity: Not Currently Social Drivers of Health Financial Resource Strain: Low Risk (01/11/2024) Overall Financial Resource Strain (CARDIA) Difficulty of Paying Living Expenses: Not hard at all Food Insecurity: No Food Insecurity (01/11/2024) Hunger Vital Sign Worried About Running Out of Food in the Last Year: Never true Ran Out of Food in the Last Year: Never true Transportation Needs: No Transportation Needs (01/11/2024) PRAPARE - Transportation Lack of Transportation (Medical): No Lack of Transportation (Non-Medical): No Physical Activity: Sufficiently Active (01/11/2024) Exercise Vital Sign Days of Exercise per Week: 6 days Minutes of Exercise per Session: 30 min Stress: No Stress Concern Present (01/11/2024) [place] [employer] - Occupational Stress Questionnaire Feeling of Stress : Not at all Social Connections: Moderately Isolated (01/11/2024) Social Connection and Isolation Panel [NHANES] Frequency of Communication with Friends and Family: More than three times a week Frequency of Social Gatherings with Friends and Family: Three times a week Attends L[employer] Services: Never Active Member of Clubs or Organizations: No Attends Club or Organization Meetings: Never Marital Status: Living with partner Intimate Partner Violence: Not At Risk (01/11/2024) Humiliation, Afraid, Rape, and Kick questionnaire Fear of Current or Ex-Partner: No Emotionally Abused: No Physically Abused: No Sexually Abused: No Housing Stability: Low Risk (01/11/2024) Housing Stability Vital Sign Unable to Pay for Housing in the Last Year: No Number of Times Moved in the Last Year: 1 Homeless in the Last Year: No Past Surgical History: Procedure Laterality Date CERVICAL FUSION 2002 CHOLECYSTECTOMY 1979 Past Surgical History: Procedure Laterality Date CERVICAL FUSION 2002 CHOLECYSTECTOMY 1979 Family History Problem Relation Name Age of Onset Emphysema Mother Objective BP 111/69 Pulse 75 Ht 5' 3 (1.6 m) Wt 141 lb 12.8 oz (64.3 kg) SpO2 96% BMI 25.12 kg/m Physical Exam Vitals and nursing note [...] time. Psychiatric: Mood and Affect: Mood normal. Moy De Dios MD 01/11/2024 9:53 AM documented in this encounter [facility] 07-13-2023 Evaluation + Plan note Associ ated Problem(s): Solitary pulmonary nodule Stable, follow-up with pulmonary as needed. [facility] 07-13-2023 Evaluation + Plan note Associ ated Problem(s): Mild intermittent asthma without complication Stable, she says she has not been using her inhalers [facility] 07-13-2023 Miscellaneous Notes Associate d Problem(s): Solitary pulmonary nodule Stable, follow-up with pulmonary as needed. Associated Problem(s): Mild intermittent asthma without complication Stable, she says she has not been using her inhalers documented in this encounter [facility] 07-13-2023 History of Presen t illness Narrative Patient verified by last name and date of . Images from the original note were not included. 07/13/2023 Danii Stokes (: 1945) is a 78 y.o. female , Established patient, here for evaluation of the following chief complaint(s): Asthma, Dizziness, and Health Maintenance (Rsv vaccine- not done) ASSESSMENT/PLAN: 1. Mild intermittent asthma without complication Assessment & Plan: Stable, she says she has not been using her inhalers 2. Solitary pulmonary nodule Assessment & Plan: Stable, follow-up with pulmonary as needed. Follow up in about 6 months (around 01/13/2024) for AWV. SUBJECTIVE/OBJECTIVE: ANTONINA Belcher comes in today for 6-month follow-up she really has no complaints today she does have a history of a pulmonary nodule that seems to be stable at this time. She has no other complaints today see ROS. Review of Systems Constitutional: Negative for chills and fever. Respiratory: Negative for shortness of breath. Cardiovascular: Negative for chest pain and palpitations. Gastrointestinal: Negative for abdominal pain, blood in stool, constipation and diarrhea. Genitourinary: Negative for dyspareunia, dysuria, frequency, hematuria and urgency. Neurological: Negative for weakness and numbness. Psychiatric/Behavioral: Negative for dysphoric mood. The patient is not nervous/anxious. Vitals: 07/13/23 0853 BP: 133/73 Pulse: 80 SpO2: 97% Weight: 141 lb 6.4 oz (64.1 kg) Height: 5' 3 (1.6 m) Physical [...] authenticate this note. Moy De Dios MD 07/13/2023 12:43 PM documented in this encounter [facility] 01-05-2023 Evaluation + Plan note Associ ated Problem(s): Elevated BP without diagnosis of hypertension Blood pressure was initially elevated, recheck was normal. [facility] 01-05-2023 Miscellaneous Notes Associate d Problem(s): Elevated BP without diagnosis of hypertension Blood pressure was initially elevated, recheck was normal. documented in this encounter [facility] 01-05-2023 History of Presen t illness Narrative Patient verified by last name and date of . Images from the original note were not included. [facility] [id number] Visit type: Established Patient Reason for Visit: [...] 125 MCG (5000 UT) capsule Therapy completed Lodwszxbsgw-Byjihojgr-Rqcmln (TRELEGY ELLIPTA IN) Therapy completed List of [...] capsule Take 1 capsule by mouth daily. Fxrhrecivbr-Sitsstdao-Fchoop (TRELEGY ELLIPTA IN) Inhale. No facility-administered medications [...] 01/05/2023 11:58 AM documented in this encounter [facility] 12-10-2022 Telephone encount er Note Pt had PET scan ordered by Dr. Yoon completed in [place] on 12/01/22 showing low suspicion for malignancy with recommendation per radiology report to complete fu imaging in 6-9 months time. Navigator will plan to follow and look for additional imaging in May 2023. [facility] 12-10-2022 Miscellaneous Notes Formattin g of this note might be different from the original. Pt had PET scan ordered by Dr. Yoon completed in [place] on 12/01/22 showing low suspicion for malignancy with recommendation per radiology report to complete fu imaging in 6-9 months time. Navigator will plan to follow and look for additional imaging in May 2023. Pt appeared on ED Nuance search for lung nodules after CTA chest 11/20/22 revealed mult pulmonary nodules up to 10 x 7 mm. Pt was referred to [facility] but deferred as she is established in [place]. Navigator contacted patient by phone to determine provider, she sees Dr. Josie Honeycutt, contacted their office and spoke with Erica, she confirms patient has appt 11/26/22. Will fax imaging reports/ED notes to [phone]. No further questions at this time. documented in this encounter [facility] 12-09-2022 Evaluation + Plan note Associ ated Problem(s): Dizziness Etiology is unknown, she is seeing cardiology who has her scheduled for a global recruiter, she also has had a stress test and echocardiogram. [facility] 12-09-2022 Miscellaneous Notes Associate d Problem(s): Dizziness Etiology is unknown, she is seeing cardiology who has her scheduled for a global recruiter, she also has had a stress test and echocardiogram. Associated Problem(s): Elevated BP without diagnosis of hypertension Blood pressure was initially elevated, recheck was normal. Associated Problem(s): Solitary pulmonary nodule Stable, follow-up with pulmonology as scheduled Addended by: MOY DE DIOS on: 12/10/2022 04:07 PM Modules accepted: Level of Service documented in this encounter [facility] 12-09-2022 Evaluation + Plan note Associ ated Problem(s): Elevated BP without diagnosis of hypertension Blood pressure was initially elevated, recheck was normal. [facility] 12-09-2022 Evaluation + Plan note Associ ated Problem(s): Solitary pulmonary nodule Stable, follow-up with pulmonology as scheduled [facility] 12-09-2022 History of Presen t illness [...] cardiology who has her scheduled for a global recruiter, she also has had a stress test [...] 12/09/2022 4:26 PM documented in this encounter [facility] 12-09-2022 Note Addended by: MOY DE DIOS on: 12/10/2022 04:07 PM Modules accepted: Level of Service [facility] 11-25-2022 Telephone encount er Note Pt appeared on ED Nuance search for lung nodules after CTA chest 11/20/22 revealed mult pulmonary nodules up to 10 x 7 mm. Pt was referred to [facility] but deferred as she is established in [place]. Navigator contacted patient by phone to determine provider, she sees Dr. Josie Honeycutt, contacted their office and spoke with Erica, she confirms patient has appt 11/26/22. Will fax imaging reports/ED notes to [phone]. No further questions at this time. [facility] 11-20-2022 Hospital Discharg e hemanth Wall PA-C - 11/20/2022 3:25 PM EDT Please follow-up with your flare worker in regards to your palpitations, and shortness of breath. Please keep the scheduled ECHO on December 01, unless otherwise directed by your flare worker. You have also been provided with a [...] be sent through Care Everywhere.Palpitations Discharge Instructions (Croatian)Shortness of Breath (Dyspnea) Discharge Instructions (Croatian)documented in this encounter [facility] 11-20-2022 Emergency departm ent Note Ortho BP's: Layin/71 (99) HR: 88 Sittin/64 (96) HR: 70 Standin/82 (110) HR: 88 Mally Kennedy RN 11/20/22 1035 [facility] 11-20-2022 Emergency departm ent Note Ortho BP's: Layin/71 (99) HR: 88 Sittin/64 (96) HR: 70 Standin/82 (110) HR: 88 Mally Kennedy RN 11/20/22 1035 EMERGENCY DEPARTMENT ENCOUNTER Pt Name: Danii Stokes Birthdate 1945 Date of evaluation: 11/20/2022 ED Provider: Es Wall PA-C EDcare was supervised by Dr. Tillman who independently examined and evaluated the patient. [...] reports that she was evaluated by her flare worker a couple of days ago, and he [...] associated with this patient's presentation includes ACS, FL, new onset heart failure, pulmonary embolism, orthostatic [...] to go home and follow-up with her flare worker on an outpatient basis. She is scheduled for an ECHO on December 01 and is advised to make an appointment with her flare worker for soon as possible. Advised the patient to follow-up with her PCP, with her flare worker and with pulmonology for continued evaluation and [...] comparison [KEYA] ED Course User Index [KEYA] Darrell Tillman MD Diagnoses as of 11/20/22 153 SOB (shortness of breath) Palpitations Lung nodule seen on imaging study ED Medications managed: Medications iopamidol (Isovue-370) 76 % injection 75 mL (75 mL IntraVENous Given 11/20/22 1401) PROCEDURES: Unless otherwise noted below, none Procedures FINAL IMPRESSION 1. SOB (shortness of breath) 2. Palpitations 3. Lung nodule seen on imaging study DISPOSITION Discharge 11/20/2022 03:24:55 PM PATIENT REFERRED TO: [facility] Pulmonary and Sleep Medicine [address] [facility] [address] Schedule an appointment as soon as possible for a visit in 1 week Rodriguez Franco MD [address] [facility] [phone] Schedule an appointment as soon as possible for a visit in [address] [facility] [address] [facility] [address] [facility] [address] [facility] [address] Go to If symptoms worsen Darryn Sneed MD [address] [place] [address], [address] [facility] [phone] Schedule an appointment as soon as possible [...] contact the dictating provider for clarification.) Es Wall PA-C (electronically signed) Emergency Medicine Provider Es Wall PA-C 11/20/22 1536 Pt c/o dizziness for the past three weeks. Pt states she was seen by her heart doctor on Wednesday and was sent home. Pt states nothing triggers the dizziness it just happens at random times. Reports palpitations documented in this encounter [facility] 11-20-2022 Emergency departm ent Triage note Pt c/o dizziness for the past three weeks. Pt states she was seen by her heart doctor on Wednesday and was sent home. Pt states nothing triggers the dizziness it just happens at random times. Reports palpitations [facility] 11-20-2022 Physician Emergen cy department Note EMERGENCY DEPARTMENT ENCOUNTER Pt Name: Danii Stokes Birthdate 1945 Date of evaluation: 11/20/2022 ED Provider: Es Wall PA-C EDcare was supervised by Dr. Tillman who independently examined and evaluated the patient. [...] reports that she was evaluated by her flare worker a couple of days ago, and he [...] associated with this patient's presentation includes ACS, FL, new onset heart failure, pulmonary embolism, orthostatic [...] to go home and follow-up with her flare worker on an outpatient basis. She is scheduled for an ECHO on December 01 and is advised to make an appointment with her flare worker for soon as possible. Advised the patient to follow-up with her PCP, with her flare worker and with pulmonology for continued evaluation and [...] comparison [KEYA] ED Course User Index [KEYA] Darrell Tillman MD Diagnoses as of 11/20/22 153 SOB (shortness of breath) Palpitations Lung nodule seen on imaging study ED Medications managed: Medications iopamidol (Isovue-370) 76 % injection 75 mL (75 mL IntraVENous Given 11/20/22 1401) PROCEDURES: Unless otherwise noted below, none Procedures FINAL IMPRESSION 1. SOB (shortness of breath) 2. Palpitations 3. Lung nodule seen on imaging study DISPOSITION Discharge 11/20/2022 03:24:55 PM PATIENT REFERRED TO: [facility] Medical [facility] Pulmonary and Sleep Medicine [address] [facility] [address] Schedule an appointment as soon as possible for a visit in 1 week Rodriguez Franco MD [address] [facility] [phone] Schedule an appointment as soon as possible for a visit in [address] [facility] ED [address] [facility] [address] [facility] ED [address] [facility] [address] Go to If symptoms worsen Darryn Sneed MD [address] [place] [address], [address] [facility] [phone] Schedule an appointment as soon as possible [...] contact the dictating provider for clarification.) Es Wall PA-C (electronically signed) Emergency Medicine Provider Es Wall PA-C 11/20/22 1538 [facility] Evaluation note Diagnosis COVID-19- Primary Ventricular premature depolarization Other premature beats [facility] [place] [facility] Diagnosis SOB (shortness of breath)- Primary Shortness of breath Palpitations Lung nodule seen on imaging study [facility] [place]* Diagnosis Solitary pulmonary nodule- Primary Dizziness Dizziness and giddiness Elevated BP without diagnosis of hypertension [facility] Diagnosis Medicare annual wellness visit, initial- Primary Elevated BP without diagnosis of hypertension Screening for diabetes mellitus Screening for ischemic heart disease [facility] [place] [facility]* Diagnosis Palpitations- Primary documented in this encounter [facility] noteNo assessment information availableWSelect [facility] Work Phone: Evaluation note* Diagnosis Mild intermittent asthma without complication- Primary Solitary pulmonary nodule documented in this encounter [facility] note* Diagnosis Solitary pulmonary nodule- Primary Dizziness Dizziness and giddiness Elevated BP without diagnosis of hypertension Mild intermittent asthma without complication- Primary Solitary pulmonary nodule Medicare annual wellness visit, subsequent- Primary Mild intermittent asthma without complication Screening for diabetes mellitus Screening for ischemic heart disease Refused influenza vaccine documented in this encounter [facility] note* Diagnosis Solitary pulmonary nodule- Primary Dizziness Dizziness and giddiness Elevated BP without diagnosis of hypertension Mild intermittent asthma without complication- Primary Solitary pulmonary nodule Medicare annual wellness visit, subsequent- Primary Mild intermittent asthma without complication Screening for diabetes mellitus Screening for ischemic heart disease Refused influenza vaccine Mild intermittent asthma without complication- Primary Pulmonary fibrosis, unspecified (HCC) documented in this encounter [facility] note* Diagnosis Solitary pulmonary nodule- Primary Dizziness Dizziness and giddiness Elevated BP without diagnosis of hypertension Mild intermittent asthma without complication- Primary Solitary pulmonary nodule Medicare annual wellness visit, subsequent- Primary Mild intermittent asthma without complication Screening for diabetes mellitus Screening for ischemic heart disease Refused influenza vaccine Mild intermittent asthma without complication- Primary Pulmonary fibrosis, unspecified (HCC) Vaginal irritation- Primary Pruritus of genital organs documented in this encounter [facility] for referral (narrative)* Consultation (Routine) - Pending Review Specialty Diagnoses / Procedures Referred By Kwan winkler Referred To Contact Pulmonology Diagnoses Lung nodule seen on imaging study Procedures OR OFFICE/OUTPATIENT NEW HIGH MDM 60-74 MINUTES Es Wall PA-C [address] [place] [address] [facility] [address] [place] [address] Referral ID Status Reason Start Date Expiration Date Visits Requested Visits Authorized [id number] Pending Review Specialty Services Required 11/20/2022 11/20/2023 1 1 [facility] Summary Purpose Family History No Family History Records FoundNo Family History Records FoundNo Family History Records FoundNo Family History Records Found Advance Directives No Advanced Directives Records FoundDocuments on File Type Date Recorded Patient Chute Builder Expl anation ACP-Advance Directive ACP-Power of Form Raiser Chief Complaint and Reason for Visit Chief Complaint Solitary pulmonary n odule Additional Source Comments INFORMATION SOURCE (unrecogn ized section and content) DATE CREATED AUTHOR 06/25/2020 [facility] ([place]) DATE CREATED AUTHOR AUTHOR'S ORGANIZ ATION 05/19/2021 [facility] tem DATE CREATED AUTHOR AUTHOR'S ORGANIZ ATION 12/09/2023 [facility] DATE CREATED AUTHOR AUTHOR'S ORGANIZ ATION 11/02/2024 [facility] Care Teams (unrecognized sec tion and content) Side Guider Relationship Specialty Start Date End Date Rodriguez Franco MD [address] [place] [phone] PCP - General 08/15/18 Side Guider Relationship Specialty Start Date End Date Rodriguez Franco MD [address] [place] [phone] PCP - General 08/15/18 Side Guider Relationship Specialty Start Date End Date Rodriguez Franco MD [address] [place] [id number] PCP - General 08/15/18 Side Guider Relationship Specialty Start Date End Date Rodriguez Franco MD [address] [place] [phone] PCP - General 08/15/18 12/08/22 Moy De Dios MD [address] [place] [address] [phone] PCP - General Family Medicine 12/09/22 Side Guider Relationship Specialty Start Date End Date Moy De Dios MD [address] [place] [address] [phone] PCP - General Family Medicine 12/09/22 Side Guider Relationship Specialty Start Date End Date Moy De Dios MD [place], [place] [phone] PCP - General Family Medicine 12/09/22 Team Status: Active Member Role Status Dates Dr. Moy De Dios MD Primary Care Provider Active Team Status: Inactive Member Role Status Dates Dr. Moy De Dios MD Primary Care Provider Active Dr. Josie Honeycutt MD Attending Provider, [facility] Provider Active Side Guider Relationship Specialty Start Date End Date Moy De Dios MD [place], [place] [phone] PCP - General Family Medicine 12/09/22 Side Guider Relationship Specialty Start Date End Date Moy De Dios MD [address] [place] [phone] PCP - General Family Medicine 12/09/22 Side Guider Relationship Specialty Start Date End Date Moy De Dios MD [place], [place] [phone] PCP - General Family Medicine 12/09/22 Side Guider Relationship Specialty Start Date End [place] [address] PCP - General Family Medicine 12/09/22 Reason for Visit (unrecogniz ed section and content) Reason Comments Dizziness Reason Onset Date Comments Care Coordination 11/25/2022 Ed Reji- Toan g Nodule Reason Comments New Patient Lung Nodule Multiple nodules ben wed on chest ct Health Maintenance Pt refused all vacci markus, dexa scan, screening hep c Reason Comments Medicare Annual Wellness Visit Subsequen t Blood Work Reason Comments Asthma Dizziness Health Maintenance Rsv vaccine- not don e Reason Comments Medicare Annual Wellness Visit Subsequen t Blood Work Health Maintenance Pcv 20 vaccine- refu seHep c screening- refuseTdap vaccine- refuseShingles vaccine- refuseRsv vaccine- refuseFlu vaccine- refuseCovid vaccine- not done Reason Onset Date Comments Results 01/12/2024 Reason Comments Asthma Medication Check 6 month. Reason Onset Date Comments Vaginal Itching 10/19/2024 Reason Comments Vaginal Itching PRN Active and Recently Administ ered Medications (unrecognized section and content) Medication Order 11/18/2022 11/19/2022 11/20/2022 iopamidol (Isovue-370) 76 % injection 75 mL (COMPLETED) 75 mL, IntraVENous, IMG once PRN, contrast, Starting on Wed11/20/22 at 1400, For 1 dose 1401 (Given - Provid er: PAMELA Rodriguez) Goals (unrecognized section and content) Goals may be documented in a n alternate section FOR RECORDS PERTAINING TO PATIENTS WHO ARE [...] BE BASED ON THE PRIMARY CLINICAL RECORDS. [employer] provides no warranty or guarantee of the accuracy or completeness of information in this document.
--- NOTE | 2024-12-01 06:37 | CT_ITS ---
PROCEDURE: CHEST WITHOUT CONTRAST 12/01/2024 REASON FOR EXAM: SOLITARY PULMONARY NODULE TECHNIQUE: Chest CT without contrast. Coronal and Sagittal reconstruction series were provided. One or more dose reduction techniques were used (e.g., Automated exposure control, adjustment of the mA and/or kV according to patient size, use of iterative reconstruction technique RADIATION DOSE SUMMARY: CTDlvol: 8.43 mGy DLP: 296.88 mGycm COMPARISON: 11/13/2023 FINDINGS: Lung windows show stable nonspecific thickening in both apices. There are stable chronic interstitial changes in both lung nuenz without organized infiltrate or effusion. On axial image 49, there is a stable 3 mm noncalcified nodule in the right middle lobe. Another six-month follow-up is recommended to assess stability. No new suspicious noncalcified mass or nodule noted. Soft tissue windows show a normal-appearing thyroid gland. No suspicious axillary, mediastinal or perihilar adenopathy. There are calcified coronary vessels. Limited cuts through the upper abdomen do not show a suspicious abnormality. Bony structures show degenerative change CT/Chest without Contrast IMPRESSION: Coronary artery calcification (CAC) is is present Stable 3 mm noncalcified nodule in the right middle lobe. Another six-month fo llow-up is recommended to assess stability Chronic interstitial changes in both lung nunez with nonspecific pleural thick ening in both apices. No organized infiltrate or effusion no suspicious noncalcified mass or nodule Degenerative bony changes Reading Location: [place] [address]
== END | disposition home or self-care (01) ==
PROVIDERS: PCP Family Medicine; Referring Provider Internal Medicine Pulmonary Disease; Visit Provider Internal Medicine Pulmonary Disease
DX: R91.1 Solitary pulmonary nodule (principal)
CPT/HCPCS: 71250